=== PATIENT | male | born 1995 | race Caucasian/White ===

== ENCOUNTER 2016-10-11 09:46 | Inpatient (IN) | payer SELFPAY ==
[~2016-10-11] VITALS: Ht 188 cm; Wt 102.4 kg
[2016-10-11 09:51] VITALS: O2SAT 100
[2016-10-11] MEDS ORDERED: LIDOCAINE HCL 1% PF 30 ML VIAL ONE (09:55)
[2016-10-11] MEDS ORDERED: ceFAZolin 2 GM PREMIX 50 ML ONE (09:56)
[2016-10-11] MEDS ORDERED: DIPHTH/TETANUS/ACEL PERTUSSIS (BOOSTER) 0.5 ML VIAL/PFS IM ONE (09:56)
[2016-10-11 10:08] LABS: I-STAT POTASSIUM 4.4 MMOL/L (3.5-4.9); I-STAT SODIUM 140 MMOL/L (138-146)
[2016-10-11 10:12] LABS: AUTOMATED NEUTROPHIL # 49.9 TH/MM3 (1.8-7.7); BASOPHIL # 0.2 TH/MM3 (0-0.2); BASOPHIL % 0.3 % (0.0-2.0); HEMATOCRIT 33.6 % (39.0-51.0); LYMPH % 4.7 % (9.0-44.0); LYMPHOCYTE # 2.7 TH/MM3 (1.0-4.8); MEAN CELL VOLUME 90.8 FL (80.0-100.0); MEAN CORPUSCULAR HEMOGLOBIN 30.5 PG (27.0-34.0); MEAN CORPUSCULAR HGB CONC 33.6 % (32.0-36.0); MONO % 7.3 % (0.0-8.0); NEUT % 87.7 % (16.0-70.0); PLATELET COUNT 327 TH/MM3 (150-450); RED CELL DISTRIBUTION WIDTH 12.8 % (11.6-17.2); WHITE BLOOD COUNT 56.9 TH/MM3 (4.0-11.0)
[2016-10-11 10:14] LABS: HEMO FLAGS AUTO DIFF
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
--- NOTE | 2016-10-11 10:21 | RADRPT ---
EXAM DATE/TIME: 10/11/2016 09:40 [facility] COMPARISON: No previous studies available for comparison. INDICATIONS : Post chest tube placement. MEDICAL HISTORY : Unobtainable. SURGICAL HISTORY : Unobtainable. ENCOUNTER: Subsequent ACUITY: 1 day PAIN SCORE: Non-responsive. LOCATION: Bilateral chest FINDINGS: Chest tube is present on the left with a large left pneumothorax. Right lung is clear. Heart and pu lmonary vascularity are normal. Extensive subcutaneous emphysema is present. CONCLUSION: Large left pneumothorax in spite of chest tube. Félix Gabriel MD FACR on October 11, 2016 at 10:17 Board Certified Radiologist. This report was verified electronically.
[2016-10-11 10:22] LABS: APTT (PATIENT) 24.3 SEC (24.3-30.1); INTERNATIONAL NORMALIZED RATIO 1.4 RATIO; PROTHROMBIN TIME - PATIENT 15.7 SEC (9.8-11.6)
[2016-10-11] MEDS ORDERED: CLINDAMYCIN PHOS 600 MG/4 ML VIAL ONE (10:47)
[2016-10-11 10:48] LABS: BANDS 11 % (0-6); NEUTROPHIL # MANUAL DIFF 50.6 TH/MM3 (1.8-7.7); POLYS (SEG NEUTROPHILS) 78 % (16-70); WBC DIFF SAMPLE 100
[2016-10-11 10:49] LABS: PLATELET ESTIMATE SMEAR NORMAL (NORMAL); PLATELET MORPHOLOGY NORMAL (NORMAL); SCAN/DIFF FINAL DIFF MANUAL
[2016-10-11 10:51] LABS: BLOOD GAS BASE EXCESS -14.7 mmol/L (-2-2); BLOOD GAS CARBOXYHEMOGLOBIN 0.4 % (0-4); BLOOD GAS HCO3 13 mmol/L (22-26); BLOOD GAS METHEMOGLOBIN 1.2 % (0-2); BLOOD GAS O2 HGB SATURATION 98 % (90-100); BLOOD GAS PCO2 46 mmHg (38-42); BLOOD GAS PO2 320 mmHg (61-120); BLOOD GAS TOTAL HGB 11.1 G/DL (12.0-16.0); TEMP CORR TO 98.6
[2016-10-11 10:53] LABS: CRITICAL VALUE YES; OXYGEN DEVICE OR; STAT YES
[2016-10-11] MEDS ORDERED: SODIUM BICARBONATE 8.4% INJ 50 MEQ/50 ML SYR IV ONE (12:00)
[2016-10-11] MEDS ORDERED: LACTATED RINGER'S 1000 ML INJ 4,000 ML IV ONE (12:00)
[2016-10-11] MEDS ORDERED: NORMOSOL R INJ 2,000 ML IV ONE (12:00)
[2016-10-11] MEDS ORDERED: SODIUM CHLOR 0.9% 250 ML INJ 250 ML IV ONE (12:00)
[2016-10-11] MEDS ORDERED: PHENYLEPHRINE HCL 10 MG/ML VIAL IV ONE (12:00)
[2016-10-11] MEDS ORDERED: PROPOFOL 200 MG/20 ML AMP IV ONE (12:00)
[2016-10-11] MEDS ORDERED: CALCIUM CHLORIDE 10% SOLN 1 GRAM/10 ML SYR IV ONE (12:00)
[2016-10-11] MEDS ORDERED: SODIUM CHLORID 0.9% 500 ML INJ 500 ML IV ONE (12:00)
[2016-10-11] MEDS ORDERED: PHENYLEPH/NS 1000 MCG/10 ML SYR IV ONE (12:00)
[2016-10-11] MEDS ORDERED: ONDANSETRON HCL 4 MG/2 ML VIAL IV PUSH ONE (12:00)
[2016-10-11 12:38] LABS: BLOOD GAS CARBOXYHEMOGLOBIN 1.3 % (0-4); BLOOD GAS HCO3 14 mmol/L (22-26); BLOOD GAS METHEMOGLOBIN 1.2 % (0-2); BLOOD GAS O2 HGB SATURATION 97 % (90-100); BLOOD GAS OXYGEN CONTENT 13.4 Vol % (12.0-20.0); BLOOD GAS PCO2 36 mmHg (38-42); BLOOD GAS PO2 269 mmHg (61-120); BLOOD GAS TOTAL HGB 9.4 G/DL (12.0-16.0); TEMP CORR TO 98.6
[2016-10-11 12:39] LABS: CRITICAL VALUE YES; DRAW SITE ART LINE; OXYGEN DEVICE OR; STAT YES
[2016-10-11] MEDS ORDERED: SODIUM CHLOR 0.9% 1000 ML INJ 1,000 ML IV SCH (13:17)
[2016-10-11] MEDS ORDERED: Post-op Orders (for Pharmacy) MISC XX ONE (13:30)
[2016-10-11] MEDS ORDERED: ONDANSETRON HCL 4 MG/2 ML VIAL IV PRN (13:30)
[2016-10-11] MEDS ORDERED: NALOXONE HCL 0.4 MG/ML AMP IV PRN (13:30)
[2016-10-11] MEDS ORDERED: MORPHINE SULFATE 4 MG/ML INJ IV PRN (13:30)
[2016-10-11] MEDS ORDERED: oxyCODONE/ACETAMINOPHEN 5 MG/325 MG TAB PO PRN (13:30)
[2016-10-11] MEDS ORDERED: SODIUM CHLORIDE 0.9% FLUSH 10 ML FLUSH IV FLUSH PRN (13:30)
[2016-10-11 13:33] LABS: HEMATOCRIT 34.8 % (39.0-51.0)
[2016-10-11 13:33] LABS: BLOOD GAS BASE EXCESS -8.2 mmol/L (-2-2); BLOOD GAS CARBOXYHEMOGLOBIN 1.2 % (0-4); BLOOD GAS HCO3 18 mmol/L (22-26); BLOOD GAS METHEMOGLOBIN 1.2 % (0-2); BLOOD GAS O2 HGB SATURATION 97 % (90-100); BLOOD GAS OXYGEN CONTENT 16.5 Vol % (12.0-20.0); BLOOD GAS PCO2 43 mmHg (38-42); BLOOD GAS PO2 255 mmHg (61-120); BLOOD GAS TOTAL HGB 11.7 G/DL (12.0-16.0); TEMP CORR TO 98.6
[2016-10-11 13:34] LABS: REVIEW FLAG FINAL
[2016-10-11 13:34] LABS: CRITICAL VALUE YES
[2016-10-11 13:35] LABS: DRAW SITE ART LINE; OXYGEN DEVICE OR; STAT YES
[2016-10-11 13:47] LABS: BICARBONATE 21.6 MEQ/L (21.0-32.0); POTASSIUM 5.3 MEQ/L (3.5-5.1)
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
[2016-10-11] MEDS ORDERED: fentaNYL CITRATE 250 MCG/5 ML AMP ONE (14:18)
[2016-10-11] MEDS ORDERED: MIDAZOLAM HCL 2 MG/2 ML VIAL ONE (14:18)
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
[2016-10-11 16:43] VITALS: BP 130/67; PULSE 110; RESP 20; TEMP 97.1; O2SAT 99
[2016-10-11] MEDS: PANTOPRAZOLE SOD 40 MG DELAYED RELEASE TAB PO SCH (16:43)
[2016-10-11 18:24] VITALS: O2SAT 99
[2016-10-11] MEDS: LEVOFLOXACIN 750 MG PREMIX INJ 150 ML IV SCH (18:39)
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
[2016-10-11 20:00] VITALS: BP 98/79; PULSE 132; RESP 20; TEMP 100.4; O2SAT 97
[2016-10-11] MEDS: SODIUM CHLORIDE 0.9% FLUSH 10 ML FLUSH IV FLUSH SCH (21:00)
[2016-10-11] MEDS ORDERED: ACETAMINOPHEN 1000 MG/100 ML VIAL IV PRN (21:30)
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
[2016-10-12] VITALS: BP 141/64; PULSE 124; RESP 20; TEMP 100.7; O2SAT 97
[2016-10-12 06:28] LABS: AUTOMATED NEUTROPHIL # 18.1 TH/MM3 (1.8-7.7); BASOPHIL % 0.1 % (0.0-2.0); HEMATOCRIT 32.2 % (39.0-51.0); HEMO FLAGS DIFF FINAL; LYMPH % 8.6 % (9.0-44.0); LYMPHOCYTE # 1.8 TH/MM3 (1.0-4.8); MEAN CELL VOLUME 86.1 FL (80.0-100.0); MEAN CORPUSCULAR HEMOGLOBIN 29.3 PG (27.0-34.0); MEAN CORPUSCULAR HGB CONC 34.1 % (32.0-36.0); MONO % 5.4 % (0.0-8.0); NEUT % 85.9 % (16.0-70.0); PLATELET COUNT 118 TH/MM3 (150-450); RED BLOOD COUNT 3.74 MIL/MM3 (4.50-5.90); RED CELL DISTRIBUTION WIDTH 14.2 % (11.6-17.2); WHITE BLOOD COUNT 21.1 TH/MM3 (4.0-11.0)
[2016-10-12 06:55] LABS: BICARBONATE 25.9 MEQ/L (21.0-32.0); POTASSIUM 3.7 MEQ/L (3.5-5.1)
[2016-10-12 07:45] VITALS: BP 142/72; PULSE 122; RESP 16; TEMP 99.2; O2SAT 96
--- NOTE | 2016-10-12 08:13 | RADRPT ---
EXAM DATE/TIME: 10/12/2016 08:02 [facility] COMPARISON: CHEST SINGLE AP, October 11, 2016, 13:58. INDICATIONS : Follow up trauma. Left chest tube. MEDICAL HISTORY : None. SURGICAL HISTORY : None. ENCOUNTER: Subsequent ACUITY: 2 days PAIN SCORE: 8/10 LOCATION: Bilateral chest FINDINGS: Left chest tube is in good position. Moderate subcutaneous emphysema is present. There is no pneumo thorax. The right lung is clear. Surgical drains are evident in the neck. The heart and pulmonary vascularity are normal. The portion of the bony skeleton visualized is unremarkable. CONCLUSION: Negative for pneumothorax chest tube in good position. Félix Gabriel MD FACR on October 12, 2016 at 8:10 Board Certified Radiologist. This report was verified electronically.
[2016-10-12 08:59] VITALS: O2SAT 98
[2016-10-12] MEDS: SODIUM CHLORIDE 0.9% FLUSH 10 ML FLUSH IV FLUSH SCH ×2 (09:00→20:20)
[2016-10-12 11:15] VITALS: BP 130/75; PULSE 117; RESP 16; TEMP 99.6; O2SAT 97
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
[2016-10-12] MEDS: PANTOPRAZOLE SOD 40 MG DELAYED RELEASE TAB PO SCH (13:06)
[2016-10-12] MEDS ORDERED: DOCU1CAP39 PO (15:10)
[2016-10-12] MEDS ORDERED: MILKSUS PO (15:10)
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
[2016-10-12 15:45] VITALS: BP 148/78; PULSE 110; RESP 16; TEMP 97.8; O2SAT 100
[2016-10-12] MEDS: LEVOFLOXACIN 750 MG PREMIX INJ 150 ML IV SCH (18:00)
[2016-10-12 20:00] VITALS: BP 151/75; PULSE 106; RESP 16; TEMP 100.7; O2SAT 100
[2016-10-12] MEDS: metroNIDAZOLE 500 MG INJ 100 ML IV SCH (20:20)
[2016-10-12] MEDS: DOCUSATE SODIUM 100 MG CAP PO SCH (20:20)
[2016-10-12] MEDS: CEFEPIME INJ 2,000 MG in SODIUM CHLORIDE 0.9% INJ 100 ML IV SCH (20:20)
[2016-10-12] MEDS ORDERED: MAGNESIUM HYDROXIDE SUSP 30 ML CUP PO SCH (21:00)
[2016-10-13] VITALS: BP 137/98; PULSE 104; RESP 26; TEMP 100.2; O2SAT 98
[2016-10-13 02:04] LABS: AMPHETAMINE, URINE NEG (NEG); BARBITURATES, URINE NEG (NEG); COCAINE, URINE NEG (NEG)
[2016-10-13 02:09] LABS: CHLAMYDIA PCR NOT DETECTED (NOT DETECT); NEISSERIA PCR NOT DETECTED (NOT DETECT)
[2016-10-13] MEDS: metroNIDAZOLE 500 MG INJ 100 ML IV SCH (04:12)
[2016-10-13] MEDS: CEFEPIME INJ 2,000 MG in SODIUM CHLORIDE 0.9% INJ 100 ML IV SCH (04:12)
[2016-10-13 05:16] VITALS: BP 145/60; PULSE 108; RESP 20; TEMP 101.7; O2SAT 95
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
--- NOTE | 2016-10-13 06:36 | RADRPT ---
EXAM DATE/TIME: 10/13/2016 05:59 [facility] COMPARISON: CHEST SINGLE AP, October 12, 2016, 8:02. INDICATIONS : Cough, short of breath MEDICAL HISTORY : left chest trauma, left arm injury SURGICAL HISTORY : left upper extremity ENCOUNTER: Subsequent ACUITY: 3 days PAIN SCORE: 9/10 LOCATION: Left chest FINDINGS: A single view of the chest demonstrates the lungs to be symmetrically aerated without evidence of mas s, infiltrate or effusion. The left chest tube has been removed. No pneumothorax. Subcutaneous air re alexandrea on the left. The cardiomediastinal contours are unremarkable. Osseous structures are intact. CONCLUSION: Left chest tube removal without pneumothorax. Francisco Contreras Jr., MD on October 13, 2016 at 6:34 Board Certified Radiologist. This report was verified electronically.
[2016-10-13 06:49] LABS: AUTOMATED NEUTROPHIL # 11.5 TH/MM3 (1.8-7.7); BASOPHIL % 0.2 % (0.0-2.0); EOSINOPHIL % 0.2 % (0.0-4.0); HEMATOCRIT 30.1 % (39.0-51.0); HEMO FLAGS DIFF FINAL; LYMPH % 10.4 % (9.0-44.0); LYMPHOCYTE # 1.5 TH/MM3 (1.0-4.8); MEAN CELL VOLUME 85.3 FL (80.0-100.0); MEAN CORPUSCULAR HEMOGLOBIN 29.7 PG (27.0-34.0); MEAN CORPUSCULAR HGB CONC 34.9 % (32.0-36.0); MONO % 8.6 % (0.0-8.0); NEUT % 80.6 % (16.0-70.0); PLATELET COUNT 126 TH/MM3 (150-450); RED BLOOD COUNT 3.53 MIL/MM3 (4.50-5.90); RED CELL DISTRIBUTION WIDTH 13.8 % (11.6-17.2); WHITE BLOOD COUNT 14.2 TH/MM3 (4.0-11.0)
[2016-10-13 07:13] LABS: ALKALINE PHOSPHATASE 47 U/L (45-117); ALT (GPT) 49 U/L (12-78); ANION GAP 7 MEQ/L (5-15); AST (GOT) 83 U/L (15-37); BICARBONATE 29.1 MEQ/L (21.0-32.0); BLOOD UREA NITROGEN 8 MG/DL (7-18); CHLORIDE 106 MEQ/L (98-107); GLOMERULAR FILTRATION RATE 71 ML/MIN (>89); MAGNESIUM 2.2 MG/DL (1.5-2.5); POTASSIUM 3.5 MEQ/L (3.5-5.1); SODIUM (NA) 142 MEQ/L (136-145); TOTAL BILIRUBIN ADULT 1.4 MG/DL (0.2-1.0)
[2016-10-13 07:37] VITALS: BP 124/72; PULSE 93; RESP 20; TEMP 96.6; O2SAT 97
[2016-10-13] MEDS: DOCUSATE SODIUM 100 MG CAP PO SCH (08:39)
[2016-10-13] MEDS: SODIUM CHLORIDE 0.9% FLUSH 10 ML FLUSH IV FLUSH SCH (08:39)
[2016-10-13] MEDS ORDERED: TYLE325T PO (10:50)
[2016-10-13] MEDS ORDERED: HALOPERIDOL LACTATE 5 MG/ML AMP IM PRN (12:00)
[2016-10-13] MEDS ORDERED: risperiDONE 1 MG TAB PO SCH (12:00)
--- NOTE | 2016-10-13 12:11 | HHI.PYPN ---
Subjective Remarks Patient was seen in the medical floor for psychiatric reevaluation this morning , patient remains in 1:1 observation for safety, she was found in his bed, very superficially cooperative, internally preoccupied, with marked blocking thought. He says that he is here in the hospital because the police in his town have been watching him and monitor his behavior. He says that his town is too small and since he is not working and not doing much with his life, he has been the target of police investigation. He says that "I had a lot subconscious stressed, but now my mood is balance, because I don't feel as if the police is interested in my behavior anymore". Patient states that another reason to be here is that he was posting "dark jokes"in [employer] and his contact became concerned. "I was just using black humor about supermarkets, but they could not understand it". When patient was asked about hearing any voices inside his head, he immediately changes his affect and becomes selectively mute , visibly paranoid and concerned. At several moment of this evaluation patient changed topics, becomes disorganized, but redirectable. He denies suicidal and homicidal ideation. Asked about to elaborate about the reason for self- mutilation he states "they were watching, and they were mad with me", but he refused to comment about who are They. Nurse in charge describes the patient has unpredictable, Oddly related and scary, however, no episodes of aggressive behavior or agitation so far. Review of Systems Constitutional: DENIES: Diaphoretic episodes, Fatigue, Fever, Weight gain, Weight loss, Chills, Dizziness, Change in appetite, Night Sweats Endocrine: DENIES: Heat/cold intolerance, Polydipsia, Polyuria, Polyphagia Eyes: DENIES: Blurred vision, Diplopia, Eye inflammation, Eye pain, Vision loss , Photosensitivity, Double Vision Ears, nose, mouth, throat: DENIES: Tinnitus, Hearing loss, Vertigo, Nasal discharge, Oral lesions, Throat pain, Hoarseness, Ear Pain, Running Nose, Epistaxis, Sinus Pain, Toothache, Odynophagia Respiratory: DENIES: Apneas, Cough, Snoring, Wheezing, Hemoptysis, Sputum production, Shortness of breath Cardiovascular: DENIES: Chest pain, Palpitations, Syncope, Dyspnea on Exertion , PND, Lower Extremity Edema, Orthopnea, Claudication Gastrointestinal: DENIES: Abdominal pain, Black stools, Bloody stools, Constipation, Diarrhea, Nausea, Vomiting, Difficulty Swallowing, Anorexia Musculoskeletal: COMPLAINS OF: Muscle aches, Neck pain Integumentary: DENIES: Abnormal pigmentation, Nail changes, Pruritus, Rash Hematologic/lymphatic: DENIES: Bruising, Lymphadenopathy Immunologic/allergic: DENIES: Eczema, Urticaria Neurologic: DENIES: Abnormal gait, Headache, Localized weakness, Paresthesias, Seizures, Speech Problems, Tremor, Poor Balance Psychiatric: COMPLAINS OF: Hallucinations (internally preoccupied), Delusions ( persecution), DENIES: Anxiety, Confusion, Mood changes, Depression, Agitation, Suicidal Ideation, Homicidal Ideation Objective Alert: Yes [place]: Person, Place, Date Mood: Oppositional, Other (irritable) Affect: Flat, Blunted Memory Intact: Immediate, Recent, Remote Hallucinations: Other (he denies, but visible internally stimulated) Delusions: No (patient has a delusion of being persecuted by police) Delusion Type: Paranoid Suicidal: Ideation (he denies) Homicidal: Ideation (he denies) Insight/Judgement Poor Labs Test 10/12/16 10/13/16 23:40 05:40 Urine Opiates Screen NEG Urine Barbiturates Screen NEG Urine Amphetamines Screen NEG Urine Benzodiazepines Screen NEG Urine Cocaine Screen NEG Urine Cannabinoids Screen NEG Chlamydia trachomatis DNA NOT DETECTED (PCR) Neisseria gonorrhoeae DNA NOT DETECTED (PCR) White Blood Count 14.2 TH/MM3 Red Blood Count 3.53 MIL/MM3 Hemoglobin 10.5 GM/DL Hematocrit 30.1 % Mean Corpuscular Volume 85.3 FL Mean Corpuscular Hemoglobin 29.7 PG Mean Corpuscular Hemoglobin 34.9 % Concent Red Cell Distribution Width 13.8 % Platelet Count 126 TH/MM3 Mean Platelet Volume 9.1 FL Neutrophils (%) (Auto) 80.6 % Lymphocytes (%) (Auto) 10.4 % Monocytes (%) (Auto) 8.6 % Eosinophils (%) (Auto) 0.2 % Basophils (%) (Auto) 0.2 % Neutrophils # (Auto) 11.5 TH/MM3 Lymphocytes # (Auto) 1.5 TH/MM3 Monocytes # (Auto) 1.2 TH/MM3 Eosinophils # (Auto) 0.0 TH/MM3 Basophils # (Auto) 0.0 TH/MM3 CBC Comment DIFF FINAL Differential Comment Sodium Level 142 MEQ/L Potassium Level 3.5 MEQ/L Chloride Level 106 MEQ/L Carbon Dioxide Level 29.1 MEQ/L Anion Gap 7 MEQ/L Blood Urea Nitrogen 8 MG/DL Creatinine 0.92 MG/DL Estimat Glomerular Filtration 71 ML/MIN Rate Random Glucose 118 MG/DL Calcium Level 8.1 MG/DL Magnesium Level 2.2 MG/DL Total Bilirubin 1.4 MG/DL Aspartate Amino Transf 83 U/L (AST/SGOT) Alanine Aminotransferase 49 U/L (ALT/SGPT) Alkaline Phosphatase 47 U/L Total Protein 5.1 GM/DL Albumin 2.5 GM/DL Date/Time Procedure Status Source Growth 10/11/16 18:30 Genital Culture Ordered Genital Penis Pending 10/11/16 12:05 Gram Stain - Final Resulted Wound Wrist 10/11/16 12:05 Wound Culture - Preliminary Resulted Gram Negative Roger 10/11/16 12:05 Fungal Smear - Final Resulted Wound Wrist NO FUNGAL ELEMENTS SEEN. 10/11/16 12:05 Fungal Culture Resulted Wound Wrist Pending 10/11/16 12:05 Acid Fast Stain Received Wound Wrist Pending 10/11/16 12:05 Mycobacterial Culture Received Wound Wrist Pending Vitals/IOs Vital Signs Date Time Temp Pulse Resp B/P Pulse Ox O2 Delivery O2 Flow Rate FiO2 10/13/16 07:37 96.6 93 20 124/72 97 10/12/16 08:59 21 10/11/16 15:30 Room Air 10/11/16 14:30 3 Intake and Output 10/12/16 10/12/16 10/13/16 08:00 16:00 00:00 Intake Total 790 ml 1200 ml Output Total 480 ml 2400 ml Balance 310 ml -1200 ml Assessment & Plan Problem List: (1) Unspecified psychosis Assessment & Plan: On psychiatric reevaluation today patient is visible psychotic, internally stimulated, paranoid, with marked blocking thought, disorganized and tangential speech, significant delusion of being monitored by police and controlled by "They" which we can potentially assume as commanding- type auditory hallucinations. Patient has already self-perpetrated several dangerous lacerations throughout his body under the influence of psychosis, he has been per contact with the reality, with limited ego-boundaries, increased potential of danger to self and others due to the level of psychosis and needs to be hospitalized for psychiatric stabilization and for safety. He can be transferred to the med psych unit. Continue 1:1 for safety. Will start Risperdal 1 mg twice a day for psychosis, with oral Haldol 5 mg every 8 hours when necessary for aggressive behavior and agitation, also Ativan 2 mg every 8 hours when necessary aggressive behavior and ideation. Collateral information is still pending. ICD Code: F29 Assessment & Plan Estimated LOS: days Justification for Cont. Inpt. Patient is floridly psychotic, with a recent highly lethal suicidal attempt under the influence of psychosis, high potential of danger to self and other at this moment. Sridhar Thompson MD Oct 13, 2016 12:11
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
== END 2016-10-13 12:31 | DRG 957 ==
LOC: EDBD → NEPI 09:46 → NEDH 10:19 → N06A 15:59
PROVIDERS: ADMIT Surgery; ATTEND Surgery
PROC: 05QP0ZZ Repair Right External Jugular Vein, Open Approach (ICD-10-PCS; 2016-10-11)
PROC: 03QC0ZZ Repair Left Radial Artery, Open Approach (ICD-10-PCS; 2016-10-11)
PROC: 0LQ60ZZ Repair Left Lower Arm and Wrist Tendon, Open Approach (ICD-10-PCS; 2016-10-11)
PROC: 0W9B30Z Drainage of Left Pleural Cavity with Drainage Device, Percutaneous Approach (ICD-10-PCS; 2016-10-11)
PROC: 0HQ4XZZ Repair Neck Skin, External Approach (ICD-10-PCS; 2016-10-11)
PROC: 0LQ80ZZ Repair Left Hand Tendon, Open Approach (ICD-10-PCS; principal; 2016-10-11 10:17)
PROC: 03Q Upper Arteries, Repair (ICD-10-PCS; 2016-10-11 10:17)
DX: S27.2XXA Traumatic hemopneumothorax, initial encounter (principal); T79.4XXA Traumatic shock, initial encounter; S55.112A Laceration of radial artery at forearm level, left arm, initial encounter; S15.01 Minor laceration of carotid artery; E87.2 Acidosis; S21.112A Laceration without foreign body of left front wall of thorax without penetration into thoracic cavity, initial encounter; S15.211A Minor laceration of right external jugular vein, initial encounter; S66.822A Laceration of other specified muscles, fascia and tendons at wrist and hand level, left hand, initial encounter; F84.5 Asperger's syndrome; F20.0 Paranoid schizophrenia; S66.121A Laceration of flexor muscle, fascia and tendon of left index finger at wrist and hand level, initial encounter; S66.323A Laceration of extensor muscle, fascia and tendon of left middle finger at wrist and hand level, initial encounter; S11.81XA Laceration without foreign body of other specified part of neck, initial encounter; S16.2XXA Laceration of muscle, fascia and tendon at neck level, initial encounter; F94.0 Selective mutism; S61.512A Laceration without foreign body of left wrist, initial encounter; T79.7XXA Traumatic subcutaneous emphysema, initial encounter; X78.1XXA Intentional self-harm by knife, initial encounter
CPT/HCPCS: 32551; 36430; 71010; 73110; 80048; 80053; 80307; 82435; 82565; 82805; 82947; 83735; 84132; 84295; 84520; 85007; 85014; 85018; 85025; 85027; 85610; 85730; 86850; 86900; 86901; 86920; 86927; 87015; 87070; 87077; 87102; 87116; 87153; 87186; 87205; 87206; 87491; 87591; 90471; 90715; 94150; 94667; 96374; 99291; G0390; J0131; J0690; J0692; J1956; J2250; J2370; J2405; J3010; J7030; J7040; J7050; J7120; L0150; P9016; P9017

== ENCOUNTER 2016-10-13 12:45 | Inpatient (IN) | payer SELFPAY ==
[~2016-10-13 12:45] MED LIST: DOCU1CAP39 PO; MILKSUS PO; TYLE325T PO
[2016-10-13 13:27] VITALS: BP 154/82; PULSE 123; RESP 20; TEMP 99.1; O2SAT 99
[2016-10-13] MEDS ORDERED: LORazepam 2 MG/ML VIAL IM PRN ×2 (15:00→20:45)
[2016-10-13] MEDS ORDERED: LORazepam 2 MG/ML VIAL - age > 65 yrs IM PRN (15:00)
[2016-10-13] MEDS ORDERED: LORazepam 0.5 MG TAB age > 65 yrs PO PRN (15:00)
[2016-10-13] MEDS ORDERED: MAGNESIUM HYDROXIDE SUSP 30 ML CUP PO PRN (15:00)
[2016-10-13] MEDS ORDERED: ALUMINUM/MAGNESIUM/SIMETH 30 ML CUP PO PRN (15:00)
[2016-10-13] MEDS: NICOTINE 21 MG/24 HR PATCH T-DERMAL SCH (16:00)
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
[2016-10-13] MEDS ORDERED: LORazepam 1 MG TAB PO PRN (16:15)
[2016-10-13] MEDS ORDERED: FLUMAZENIL 0.5 MG/5 ML VIAL IV PUSH PRN (16:15)
[2016-10-13] MEDS ORDERED: LORazepam 2 MG TAB PO PRN (16:15)
[2016-10-13] MEDS ORDERED: LORazepam 2 MG/ML VIAL IV PUSH PRN ×4 (16:15)
[2016-10-13] MEDS ORDERED: HALOPERIDOL LACTATE 5 MG/ML AMP IM PRN ×2 (16:15→17:00)
[2016-10-13] MEDS: CEFEPIME INJ 2,000 MG in SODIUM CHLORIDE 0.9% INJ 100 ML IV SCH (17:00)
[2016-10-13] MEDS ORDERED: metroNIDAZOLE 500 MG TAB PO SCH (17:00)
[2016-10-13] MEDS: LEVOFLOXACIN 750 MG PREMIX INJ 150 ML IV SCH (18:00)
[2016-10-13] MEDS ORDERED: risperiDONE 1 MG TAB PO ONE (18:00)
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
[2016-10-13 20:44] VITALS: BP 169/78; PULSE 106; RESP 18; TEMP 99.1; O2SAT 95
[2016-10-13] MEDS ORDERED: LORazepam 2 MG/ML VIAL IM ONE (20:45)
[2016-10-13] MEDS ORDERED: diphenhydrAMINE HCL 50 MG/ML VIAL IM ONE (20:45)
[2016-10-13] MEDS ORDERED: ZIPRASIDONE MESYLATE 20 MG VIAL IM ONE (20:45)
[2016-10-13] MEDS: REMOVE OLD NICOTINE PATCH T-DERMAL SCH (21:00)
[2016-10-13] MEDS: risperiDONE 1 MG TAB PO SCH (21:00)
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
[2016-10-13] MEDS: metroNIDAZOLE 500 MG INJ 100 ML IV SCH (22:28)
[2016-10-14 00:32] VITALS: BP 153/85; PULSE 110; RESP 16; TEMP 98.6; O2SAT 99
[2016-10-14] MEDS: CEFEPIME INJ 2,000 MG in SODIUM CHLORIDE 0.9% INJ 100 ML IV SCH ×3 (00:43→17:00)
[2016-10-14 01:56] LABS: ANION GAP 7 MEQ/L (5-15); BICARBONATE 28.3 MEQ/L (21.0-32.0); BLOOD UREA NITROGEN 6 MG/DL (7-18); CHLORIDE 109 MEQ/L (98-107); GLOMERULAR FILTRATION RATE 82 ML/MIN (>89); POTASSIUM 3.8 MEQ/L (3.5-5.1); SODIUM (NA) 144 MEQ/L (136-145); TRANSFERRIN IRON PROFILE 140 MG/DL (200-360)
[2016-10-14 01:59] LABS: FERRITIN 97 NG/ML (26-388); HDL CHOLESTEROL 29.6 MG/DL (40.0-60.0); LDL CHOLESTEROL 21 MG/DL (0-99)
[2016-10-14] MEDS: metroNIDAZOLE 500 MG INJ 100 ML IV SCH ×3 (05:05→21:28)
[2016-10-14 05:31] VITALS: BP 140/73; PULSE 94; RESP 22; TEMP 98.7; O2SAT 96
[2016-10-14] MEDS: MULTIVITAMINS/MINERALS THERAPEUTIC TAB PO SCH (08:54)
[2016-10-14] MEDS: THIAMINE HCL 100 MG TAB PO SCH (08:54)
[2016-10-14] MEDS: risperiDONE 1 MG TAB PO SCH ×2 (08:54→21:00)
[2016-10-14] MEDS: FOLIC ACID 1 MG TAB PO SCH (08:54)
[2016-10-14] MEDS: NICOTINE 21 MG/24 HR PATCH T-DERMAL SCH (08:55)
[2016-10-14] MEDS: FERROUS SULFATE 325 MG (65 MG ELEMENTAL IRON) TAB PO SCH (11:00)
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
[2016-10-14 16:03] LABS: HEMOGLOBIN A1b 0.9 %; HEMOGLOBIN Ao 86.6 %; HEMOGLOBIN F 0.8 %; HEMOGLOBIN LA1C 1.6 %; HEMOGLOBIN P3 3.3 %
--- NOTE | 2016-10-14 16:07 | EKG ---
Date Performed: 10/14/2016 Time Performed: 11:28:57 PTAGE: 89 years EKG: SINUS TACHYCARDIA NONSPECIFIC T-WAVE ABNORMALITY ABNORMAL ECG INTERPRETATION BASED ON A DEF ADRIENNE AGE OF 39 YEARS NO PREVIOUS TRACING DOCTOR: Macey Adams Interpretating Date/Time 10/14/2016 16:06:26
[2016-10-14] MEDS: DOXYCYCLINE INJ 200 MG in SODIUM CHLOR 0.9% 250 ML INJ 250 ML IV SCH (17:00)
[2016-10-14] MEDS: LEVOFLOXACIN 750 MG PREMIX INJ 150 ML IV SCH (18:00)
--- NOTE | 2016-10-14 18:10 | HHI.IDPN ---
Subjective Subjective Remarks seen today together with Dr Agee Pt is afebrile Takes IV abx dw microlab: 2 GNBs, one possibly vibrio - sent to [place] for further ID Antibiotics cefepime levaquine flagyl Past Medical History schitzophrenia Asperger Allergies: Coded Allergies: Sulfa (Verified Allergy, Severe, unknown , 10/13/16) Objective . Vital Signs Date Time Temp Pulse Resp B/P Pulse Ox O2 Delivery O2 Flow Rate FiO2 10/14/16 05:31 98.7 94 22 140/73 96 10/14/16 00:32 98.6 110 16 153/85 99 10/13/16 20:44 99.1 106 18 169/78 95 10/13/16 10/13/16 10/14/16 15:00 23:00 07:00 Intake Total 480 ml Output Total 480 ml Balance 0 ml Intake Oral 480 ml Output Urine Total 480 ml # Voids 3 . Laboratory Tests Test 10/14/16 01:20 Sodium Level 144 MEQ/L Potassium Level 3.8 MEQ/L Chloride Level 109 MEQ/L Carbon Dioxide Level 28.3 MEQ/L Anion Gap 7 MEQ/L Blood Urea Nitrogen 6 MG/DL Creatinine 0.81 MG/DL Estimat Glomerular Filtration 82 ML/MIN Rate Random Glucose 89 MG/DL Hemoglobin A1c 5.2 % Calcium Level 8.0 MG/DL Iron Level 29 MCG/DL Total Iron Binding Capacity 196 MCG/DL Percent Iron Saturation 14.8 % Ferritin 97 NG/ML Triglycerides Level 82 MG/DL Cholesterol Level 67 MG/DL LDL Cholesterol 21 MG/DL HDL Cholesterol 29.6 MG/DL Cholesterol/HDL Ratio 2.26 RATIO Microbiology Date/Time Procedure Status Source Growth 10/14/16 01:20 Aerobic Blood Culture Received Blood Peripheral Pending 10/14/16 01:20 Anaerobic Blood Culture Received Blood Peripheral Pending 10/14/16 01:25 Aerobic Blood Culture Received Blood Peripheral Pending 10/14/16 01:25 Anaerobic Blood Culture Received Blood Peripheral Pending Physical Exam GENERAL: This is a well-nourished, well-developed patient, in no apparent distress. PSYCHIATRIC: delusional; no insight into his medidcal sitution; tangential more cooperative today MUSCULOSKELETAL: Extremities without clubbing, cyanosis, or edema. LUE with clean, dry well approximated incision with min serous d/c some eythema and soft edema proximally to incision next to his L UE PIV - not crossing the yday mars moves finger TUBES/LINES/DRAINS: PIV LUE SKIN: No jaundice, rashes, or lesions. Skin temperature appropriate. Not diaphoretic. HEAD: Atraumatic. Normocephalic. EYES: Pupils equal and round and reactive. Extraocular motions intact. No scleral icterus. No injection or drainage. Fundi not examined. ENT: Hearing grossly normal. Nose without bleeding or purulent drainage. NECK: Trachea midline. B/l incisions are dry and clean with stapnles in CARDIOVASCULAR: no murmurs; regular RESPIRATORY/CHEST: Symmetric, unlabored respirations. Clear to auscultation + some mild crepitus to palpation of L chest Incision is dry, clean, no drainage or erythema/edema GASTROINTESTINAL: soft benign, No hepatosplenomegaly NEUROLOGICAL: Awake and alert. Motor and sensory grossly within normal limits. Speech normal mostly incoherent. Moves all extremities. Assessment & Plan Remarks Contaminated wound of LUE with water exposure, infected with GNR x 2, one possibly vibrio Fever - likely 2/2 LUE infx, however other sources can not be exclusded untill physical exam is performed, that was refused by the pt Pt phycosis is much better controlled and he is cooperatiing with IV abx sp dT booster in ER Penile drainage, clx P Improved renal fnx cont levaqin, cefepime, flagyl add doxycycline fu blood clx fu genital cx dw RN dw Giovanna Doshi MD Oct 14, 2016 18:10
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
[2016-10-14 18:32] VITALS: BP 127/65; PULSE 106; RESP 18; TEMP 98.5; O2SAT 97
[2016-10-14] MEDS: REMOVE OLD NICOTINE PATCH T-DERMAL SCH (21:00)
[2016-10-15] MEDS: CEFEPIME INJ 2,000 MG in SODIUM CHLORIDE 0.9% INJ 100 ML IV SCH ×3 (00:54→16:34)
[2016-10-15] MEDS: DOXYCYCLINE INJ 200 MG in SODIUM CHLOR 0.9% 250 ML INJ 250 ML IV SCH ×2 (04:15→17:00)
[2016-10-15] MEDS: metroNIDAZOLE 500 MG INJ 100 ML IV SCH ×3 (06:19→22:50)
[2016-10-15 06:34] VITALS: BP 147/84; PULSE 102; RESP 24; TEMP 100.3; O2SAT 96
[2016-10-15] MEDS: FOLIC ACID 1 MG TAB PO SCH (09:00)
[2016-10-15] MEDS: risperiDONE 1 MG TAB PO SCH (09:00)
[2016-10-15] MEDS: THIAMINE HCL 100 MG TAB PO SCH (09:00)
[2016-10-15] MEDS: NICOTINE 21 MG/24 HR PATCH T-DERMAL SCH (09:00)
[2016-10-15] MEDS: FERROUS SULFATE 325 MG (65 MG ELEMENTAL IRON) TAB PO SCH (09:00)
[2016-10-15] MEDS: MULTIVITAMINS/MINERALS THERAPEUTIC TAB PO SCH (09:00)
[2016-10-15] MEDS ORDERED: LORazepam 2 MG/ML VIAL IV PUSH ONE (09:30)
[2016-10-15] MEDS ORDERED: ACETAMINOPHEN 1000 MG/100 ML VIAL IV PRN (09:45)
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
[2016-10-15 11:07] LABS: AUTOMATED NEUTROPHIL # 8.5 TH/MM3 (1.8-7.7); BASOPHIL % 0.3 % (0.0-2.0); EOSINOPHIL # 0.2 TH/MM3 (0-0.4); EOSINOPHIL % 1.8 % (0.0-4.0); HEMATOCRIT 35.7 % (39.0-51.0); LYMPH % 11.8 % (9.0-44.0); LYMPHOCYTE # 1.3 TH/MM3 (1.0-4.8); MEAN CELL VOLUME 86.5 FL (80.0-100.0); MEAN CORPUSCULAR HEMOGLOBIN 29.2 PG (27.0-34.0); MEAN CORPUSCULAR HGB CONC 33.8 % (32.0-36.0); MONO % 10.7 % (0.0-8.0); NEUT % 75.4 % (16.0-70.0); PLATELET COUNT 188 TH/MM3 (150-450); RED BLOOD COUNT 4.12 MIL/MM3 (4.50-5.90); RED CELL DISTRIBUTION WIDTH 13.3 % (11.6-17.2); WHITE BLOOD COUNT 11.3 TH/MM3 (4.0-11.0)
[2016-10-15 11:10] LABS: HEMO FLAGS AUTO DIFF
[2016-10-15 11:59] LABS: BICARBONATE 24.8 MEQ/L (21.0-32.0); POTASSIUM 3.8 MEQ/L (3.5-5.1)
[2016-10-15 12:10] LABS: SCAN/DIFF AUTO DIFF CONFIRMED
[2016-10-15] MEDS ORDERED: ZIPRASIDONE MESYLATE 20 MG VIAL IM PRN (13:15)
--- NOTE | 2016-10-15 13:27 | HHI.PYPN ---
Subjective Remarks Patient was seen today for psychiatric reevaluation, he was seen along with nurse in charge Uday Killian and ADRIEL Lynch, patient was found standing in his room, moveless, very rigid, in the same position for several minutes, not responding to verbal commands, mute and marked negativism. After giving him 2 mg of Ativan IV stat he showed an almost immediate positive response. Patient continues to be very paranoid, refusing to eat, refusing the medications stating that is poisoned. He is also disorganized, tangential, no making sense , at times agitated in the unit, but not aggressive so far. Patient denies suicidal or homicidal ideation, he denies visual and auditory hallucinations, however he has been seeing internally stimulated and talking to himself often in the unit. Review of Systems Other No somatic complaints Objective Alert: Yes Lamar: Person Mood: Oppositional Affect: Flat, Blunted Memory Intact: Comment (no formally assessed) Hallucinations: Other (not formally assessed) Delusions: Yes (paranoid) Delusion Type: Paranoid Suicidal: Ideation (he denies) Homicidal: Ideation (he denies) Insight/Judgement Poor Labs Test 10/15/16 10:22 White Blood Count 11.3 TH/MM3 Red Blood Count 4.12 MIL/MM3 Hemoglobin 12.0 GM/DL Hematocrit 35.7 % Mean Corpuscular Volume 86.5 FL Mean Corpuscular Hemoglobin 29.2 PG Mean Corpuscular Hemoglobin 33.8 % Concent Red Cell Distribution Width 13.3 % Platelet Count 188 TH/MM3 Mean Platelet Volume 8.6 FL Neutrophils (%) (Auto) 75.4 % Lymphocytes (%) (Auto) 11.8 % Monocytes (%) (Auto) 10.7 % Eosinophils (%) (Auto) 1.8 % Basophils (%) (Auto) 0.3 % Neutrophils # (Auto) 8.5 TH/MM3 Lymphocytes # (Auto) 1.3 TH/MM3 Monocytes # (Auto) 1.2 TH/MM3 Eosinophils # (Auto) 0.2 TH/MM3 Basophils # (Auto) 0.0 TH/MM3 CBC Comment AUTO DIFF Differential Comment AUTO DIFF CONFIRMED Sodium Level 140 MEQ/L Potassium Level 3.8 MEQ/L Chloride Level 107 MEQ/L Carbon Dioxide Level 24.8 MEQ/L Anion Gap 8 MEQ/L Blood Urea Nitrogen 10 MG/DL Creatinine 0.91 MG/DL Estimat Glomerular Filtration 105 ML/MIN Rate Random Glucose 101 MG/DL Calcium Level 8.9 MG/DL Magnesium Level 2.0 MG/DL Date/Time Procedure Status Source Growth 10/14/16 01:25 Aerobic Blood Culture - Preliminary Resulted Blood Peripheral NO GROWTH IN 1 DAY 10/14/16 01:25 Anaerobic Blood Culture - Preliminary Resulted Blood Peripheral NO GROWTH IN 1 DAY Vitals/IOs Vital Signs Date Time Temp Pulse Resp B/P Pulse Ox O2 Delivery O2 Flow Rate FiO2 10/15/16 06:34 100.3 102 24 147/84 96 Intake and Output 10/14/16 10/14/16 10/15/16 08:00 16:00 00:00 Intake Total 480 ml 360 ml 3800 ml Output Total 480 ml Balance 0 ml 360 ml 3800 ml Assessment & Plan Problem List: (1) Unspecified psychosis Assessment & Plan: Patient today was found in a catatonic state. He was medicated with Ativan 2 mg IV stat. Patient is still psychotic, disorganized, delusional, very paranoid in the unit, no taking medications stating that is poisoned. Will discontinue Risperdal 1 mg twice a day and add Geodon 10 mg IM every 12 hours for psychosis. Patient will remain in one-to-one observation for safety. ICD Code: F29 (2) Catatonia Assessment & Plan: Significant evaluation today patient presented mute, in a rigid standing position, verbally moving, not following commands, with marked negativism. He was medicated with Ativan 2 mg IV stat and almost immediately he showed improvement. ICD Code: F06.1 Assessment & Plan Estimated LOS: days Justification for Cont. Inpt. Patient is acutely psychotic, today was even catatonic, he will continue psychiatric hospitalization for stabilization. Sridhar Thompson MD Oct 15, 2016 13:27
[2016-10-15] MEDS: ZIPRASIDONE MESYLATE 20 MG VIAL IM SCH (15:44)
[2016-10-15] MEDS: LEVOFLOXACIN 750 MG PREMIX INJ 150 ML IV SCH (18:00)
[2016-10-15 19:14] VITALS: BP 146/78; PULSE 97; RESP 20; TEMP 98.1; O2SAT 97
[2016-10-15] MEDS: REMOVE OLD NICOTINE PATCH T-DERMAL SCH (21:00)
[2016-10-16] MEDS: CEFEPIME INJ 2,000 MG in SODIUM CHLORIDE 0.9% INJ 100 ML IV SCH ×2 (01:38→09:46)
[2016-10-16] MEDS: ZIPRASIDONE MESYLATE 20 MG VIAL IM SCH ×2 (04:30→15:36)
[2016-10-16] MEDS: DOXYCYCLINE INJ 200 MG in SODIUM CHLOR 0.9% 250 ML INJ 250 ML IV SCH ×2 (05:23→16:40)
[2016-10-16 05:48] VITALS: BP 128/82; PULSE 97; RESP 18; TEMP 99; O2SAT 98
[2016-10-16 06:47] LABS: AUTOMATED NEUTROPHIL # 7.2 TH/MM3 (1.8-7.7); BASOPHIL % 0.4 % (0.0-2.0); EOSINOPHIL # 0.4 TH/MM3 (0-0.4); EOSINOPHIL % 3.5 % (0.0-4.0); HEMATOCRIT 33.7 % (39.0-51.0); LYMPH % 15.4 % (9.0-44.0); LYMPHOCYTE # 1.6 TH/MM3 (1.0-4.8); MEAN CELL VOLUME 85.8 FL (80.0-100.0); MEAN CORPUSCULAR HEMOGLOBIN 29.9 PG (27.0-34.0); MEAN CORPUSCULAR HGB CONC 34.8 % (32.0-36.0); MONO % 10.6 % (0.0-8.0); NEUT % 70.1 % (16.0-70.0); PLATELET COUNT 217 TH/MM3 (150-450); RED BLOOD COUNT 3.92 MIL/MM3 (4.50-5.90); RED CELL DISTRIBUTION WIDTH 13.6 % (11.6-17.2); WHITE BLOOD COUNT 10.3 TH/MM3 (4.0-11.0)
[2016-10-16 06:53] LABS: ALKALINE PHOSPHATASE 49 U/L (45-117); ALT (GPT) 46 U/L (12-78); ANION GAP 10 MEQ/L (5-15); AST (GOT) 22 U/L (15-37); BICARBONATE 23.4 MEQ/L (21.0-32.0); BLOOD UREA NITROGEN 11 MG/DL (7-18); CHLORIDE 106 MEQ/L (98-107); CREATINE KINASE 205 U/L (39-308); GLOMERULAR FILTRATION RATE 112 ML/MIN (>89); MAGNESIUM 2.1 MG/DL (1.5-2.5); POTASSIUM 3.8 MEQ/L (3.5-5.1); SODIUM (NA) 139 MEQ/L (136-145); TOTAL BILIRUBIN ADULT 0.8 MG/DL (0.2-1.0)
[2016-10-16 06:55] LABS: HEMO FLAGS AUTO DIFF
[2016-10-16] MEDS: metroNIDAZOLE 500 MG INJ 100 ML IV SCH (07:03)
[2016-10-16] MEDS: MULTIVITAMINS/MINERALS THERAPEUTIC TAB PO SCH (07:46)
[2016-10-16] MEDS: THIAMINE HCL 100 MG TAB PO SCH (07:46)
[2016-10-16] MEDS: FOLIC ACID 1 MG TAB PO SCH (07:46)
[2016-10-16] MEDS: NICOTINE 21 MG/24 HR PATCH T-DERMAL SCH (07:47)
[2016-10-16] MEDS: FERROUS SULFATE 325 MG (65 MG ELEMENTAL IRON) TAB PO SCH (07:47)
[2016-10-16 08:38] LABS: BANDS 11 % (0-6); EOSINOPHILS 3 % (0-4); MYELOCYTES 3 % (0-0); POLYS (SEG NEUTROPHILS) 64 % (16-70); WBC DIFF SAMPLE 100
[2016-10-16 08:39] LABS: PLATELET ESTIMATE SMEAR NORMAL (NORMAL); PLATELET MORPHOLOGY NORMAL (NORMAL)
[2016-10-16 08:40] LABS: SCAN/DIFF FINAL DIFF MANUAL
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
[2016-10-16] MEDS: LACTOBACILLUS ACIDOPHILUS TAB PO SCH (12:53)
--- NOTE | 2016-10-16 13:31 | EKG ---
Date Performed: 10/15/2016 Time Performed: 13:30:43 PTAGE: 20 years EKG: SINUS TACHYCARDIA ABNORMAL RHYTHM ECG PREVIOUS TRACING : 10/14/2016 11.28 Compared to prior tracing no significant change DOCTOR: Noel Mondragon Interpretating Date/Time 10/16/2016 13:29:16
--- NOTE | 2016-10-16 15:13 | RADRPT ---
EXAM DATE/TIME: 10/16/2016 12:48 [facility] COMPARISON: No previous studies available for comparison. INDICATIONS : Altered mental status, psychosis. RADIATION DOSE: 56.35 CTDIvol (mGy) MEDICAL HISTORY : Autism. SURGICAL HISTORY : None. ENCOUNTER: Initial ACUITY: 4 - 6 days PAIN SCALE: 0/10 LOCATION: cranial TECHNIQUE: Multiple contiguous axial images were obtained of the head. Using automated exposure control and adj ustment of the mA and/or kV according to patient size, radiation dose was kept as low as reasonably a chievable to obtain optimal diagnostic quality images. FINDINGS: CEREBRUM: The ventricles are normal for age. No evidence of midline shift, mass lesion, hemorrhage or acute in farction. No extra-axial fluid collections are seen. POSTERIOR FOSSA: The cerebellum and brainstem are intact. The 4th ventricle is midline. The cerebellopontine angle i s unremarkable. EXTRACRANIAL: The visualized portion of the orbits is intact. SKULL: The calvaria is intact. No evidence of skull fracture. Skin amos present no posterolateral neck. CONCLUSION: Negative noncontrast CT brain. Francisco Langston MD on October 16, 2016 at 15:10 Board Certified Radiologist. This report was verified electronically.
--- NOTE | 2016-10-16 15:41 | HHI.PYPN ---
Subjective Remarks Patient was seen for psychiatric reevaluation today, patient is found in his bed , thoughtful, internally preoccupied, he says that he feels better, he says that he doesn't know if he should speak with me because he doesn't trust people here, patient says that the reason he is here is because he wanted to kill himself "and now everyone is mad with me". He continues to be disorganized, with pronounced respiratory speech and blocking thought. He has been getting his IM Geodon 10 mg twice a day without major resistance, no agitation or aggressive behavior reported, but he has been poorly cooperative, internally preoccupied, disorganized, talking to self. Review of Systems Other No somatic complaints Objective Alert: Yes [place]: Person Mood: Oppositional Affect: Flat, Blunted Memory Intact: Comment (no formally assessed) Hallucinations: Other (not formally assessed) Delusions: Yes (paranoid) Delusion Type: Paranoid Suicidal: Ideation (he denies) Homicidal: Ideation (he denies) Insight/Judgment Poor Labs Test 10/16/16 05:48 White Blood Count 10.3 TH/MM3 Red Blood Count 3.92 MIL/MM3 Hemoglobin 11.7 GM/DL Hematocrit 33.7 % Mean Corpuscular Volume 85.8 FL Mean Corpuscular Hemoglobin 29.9 PG Mean Corpuscular Hemoglobin 34.8 % Concent Red Cell Distribution Width 13.6 % Platelet Count 217 TH/MM3 Mean Platelet Volume 9.0 FL Neutrophils (%) (Auto) 70.1 % Lymphocytes (%) (Auto) 15.4 % Monocytes (%) (Auto) 10.6 % Eosinophils (%) (Auto) 3.5 % Basophils (%) (Auto) 0.4 % Neutrophils # (Auto) 7.2 TH/MM3 Lymphocytes # (Auto) 1.6 TH/MM3 Monocytes # (Auto) 1.1 TH/MM3 Eosinophils # (Auto) 0.4 TH/MM3 Basophils # (Auto) 0.0 TH/MM3 CBC Comment AUTO DIFF Differential Total Cells 100 Counted Neutrophils % (Manual) 64 % Band Neutrophils % 11 % Lymphocytes % 11 % Monocytes % 8 % Eosinophils % 3 % Neutrophils # (Manual) 8.0 TH/MM3 Myelocytes 3 % Differential Comment FINAL DIFF MANUAL Platelet Estimate NORMAL Platelet Morphology Comment NORMAL Sodium Level 139 MEQ/L Potassium Level 3.8 MEQ/L Chloride Level 106 MEQ/L Carbon Dioxide Level 23.4 MEQ/L Anion Gap 10 MEQ/L Blood Urea Nitrogen 11 MG/DL Creatinine 0.86 MG/DL Estimat Glomerular Filtration 112 ML/MIN Rate Random Glucose 97 MG/DL Calcium Level 8.6 MG/DL Magnesium Level 2.1 MG/DL Total Bilirubin 0.8 MG/DL Aspartate Amino Transf 22 U/L (AST/SGOT) Alanine Aminotransferase 46 U/L (ALT/SGPT) Alkaline Phosphatase 49 U/L Total Creatine Kinase 205 U/L Total Protein 6.3 GM/DL Albumin 3.1 GM/DL Date/Time Procedure Status Source Growth 10/14/16 01:25 Aerobic Blood Culture - Preliminary Resulted Blood Peripheral NO GROWTH IN 2 DAYS 10/14/16 01:25 Anaerobic Blood Culture - Preliminary Resulted Blood Peripheral NO GROWTH IN 2 DAYS Vitals/IOs Vital Signs Date Time Temp Pulse Resp B/P Pulse Ox O2 Delivery O2 Flow Rate FiO2 10/16/16 05:48 99.0 97 18 128/82 98 Intake and Output 10/15/16 10/15/16 10/16/16 08:00 16:00 00:00 Intake Total 0 ml 240 ml 240 ml Balance 0 ml 240 ml 240 ml Assessment & Plan Problem List: (1) Unspecified psychosis Assessment & Plan: We'll continue Geodon 10 mg IM twice a day for psychosis, most probably will increase tomorrow. Continue close monitoring of behavior and mood. ICD Code: F29 (2) Catatonia ICD Code: F06.1 Assessment & Plan Estimated LOS: days Justification for Cont. Inpt. Patient continues to be acutely psychotic, internally preoccupied, very paranoid and he needs to continue his psychiatric hospitalization for stabilization Sridhar Thompson MD Oct 16, 2016 15:41
[2016-10-16 18:00] VITALS: BP 116/72; PULSE 97; RESP 18; TEMP 99.5; O2SAT 97
[2016-10-16] MEDS: LEVOFLOXACIN 750 MG PREMIX INJ 150 ML IV SCH (18:00)
[2016-10-16] MEDS: REMOVE OLD NICOTINE PATCH T-DERMAL SCH (21:00)
[2016-10-17] MEDS: ZIPRASIDONE MESYLATE 20 MG VIAL IM SCH ×3 (03:45→23:15)
[2016-10-17] MEDS: DOXYCYCLINE INJ 200 MG in SODIUM CHLOR 0.9% 250 ML INJ 250 ML IV SCH ×2 (03:47→16:11)
[2016-10-17] MEDS: ACETAMINOPHEN 325 MG TAB PO PRN (04:07)
[2016-10-17] MEDS: NICOTINE 21 MG/24 HR PATCH T-DERMAL SCH (09:00)
[2016-10-17] MEDS: FOLIC ACID 1 MG TAB PO SCH (09:50)
[2016-10-17] MEDS: FERROUS SULFATE 325 MG (65 MG ELEMENTAL IRON) TAB PO SCH (09:50)
[2016-10-17] MEDS: LACTOBACILLUS ACIDOPHILUS TAB PO SCH ×3 (09:51→17:34)
[2016-10-17] MEDS: THIAMINE HCL 100 MG TAB PO SCH (09:51)
[2016-10-17] MEDS: MULTIVITAMINS/MINERALS THERAPEUTIC TAB PO SCH (09:51)
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
--- NOTE | 2016-10-17 13:59 | HHI.PYPN ---
Subjective Remarks Patient was seen for psychiatric reevaluation today, patient continues to be quite disorganized, tangential and oddly related, but more talkative and able to answer questions. He says that he is here because he deserved to be here "because I haven't been a good friend in a good son". Patient says that he feels guilty that he had to drop school because "I am a stupid". In other hand , in the later moment patient says that he can read my mind "because I have a mathematical mind, and I am smarter than you". During the evaluation patient has several moments of thought fragmentation and thought blocking. He seems to be internally preoccupied, and at times can become irritable and visibly paranoid. In the unit he has not been agitated or aggressive, but sometimes displays bizarre behavior and movements. Review of Systems Other No somatic complaints Objective Alert: Yes [place]: Person Mood: Oppositional Affect: Flat, Blunted Memory Intact: Comment (no formally assessed) Hallucinations: Other (not formally assessed) Delusions: Yes (paranoid) Delusion Type: Paranoid Suicidal: Ideation (he denies) Homicidal: Ideation (he denies) Insight/Judgment Poor Labs Date/Time Procedure Status Source Growth 10/14/16 01:25 Aerobic Blood Culture - Preliminary Resulted Blood Peripheral NO GROWTH IN 3 DAYS 10/14/16 01:25 Anaerobic Blood Culture - Preliminary Resulted Blood Peripheral NO GROWTH IN 3 DAYS Vitals/IOs Vital Signs Date Time Temp Pulse Resp B/P Pulse Ox O2 Delivery O2 Flow Rate FiO2 10/16/16 18:00 99.5 97 18 116/72 97 Intake and Output 10/16/16 10/16/16 10/17/16 08:00 16:00 00:00 Intake Total 2500 ml 480 ml 680 ml Balance 2500 ml 480 ml 680 ml Assessment & Plan Problem List: (1) Unspecified psychosis Assessment & Plan: Patient continues to be psychotic, will increase Geodon to 10 mg IM the morning and 15 mg IM at bedtime. Patient needs to remain in one-to -one observation due to unpredictable behavior and for safety. ICD Code: F29 (2) Catatonia ICD Code: F06.1 Assessment & Plan Estimated LOS: days Justification for Cont. Inpt. Patient is acutely psychotic and is to continue psychiatric hospitalization for stabilization Sridhar Thompson MD Oct 17, 2016 13:59
[2016-10-17 18:00] VITALS: BP 130/67; PULSE 93; RESP 20; TEMP 98.4; O2SAT 97
[2016-10-17] MEDS: LEVOFLOXACIN 750 MG PREMIX INJ 150 ML IV SCH (18:01)
--- NOTE | 2016-10-17 18:52 | HHI.IDPN ---
Subjective Subjective Remarks seen today together with Dr Agee Pt is afebrile Takes IV abx much calmer today He co mild discomfort in L forearm BC remain negative dw microlab: 2 GNBs, one possibly vibrio - sent to [place] for further ID, still P Antibiotics cefepime levaquine flagyl Past Medical History schitzophrenia Asperger Allergies: Coded Allergies: Sulfa (Verified Allergy, Severe, unknown , 10/13/16) Objective . 10/16/16 10/16/16 10/17/16 15:00 23:00 07:00 Intake Total 480 ml 680 ml Balance 480 ml 680 ml Intake Oral 480 ml 480 ml IV Total 200 ml # Voids 3 2 # Bowel Movements 0 . Laboratory Tests Test 10/16/16 05:48 White Blood Count 10.3 TH/MM3 Red Blood Count 3.92 MIL/MM3 Hemoglobin 11.7 GM/DL Hematocrit 33.7 % Mean Corpuscular Volume 85.8 FL Mean Corpuscular Hemoglobin 29.9 PG Mean Corpuscular Hemoglobin 34.8 % Concent Red Cell Distribution Width 13.6 % Platelet Count 217 TH/MM3 Mean Platelet Volume 9.0 FL Neutrophils (%) (Auto) 70.1 % Lymphocytes (%) (Auto) 15.4 % Monocytes (%) (Auto) 10.6 % Eosinophils (%) (Auto) 3.5 % Basophils (%) (Auto) 0.4 % Neutrophils # (Auto) 7.2 TH/MM3 Lymphocytes # (Auto) 1.6 TH/MM3 Monocytes # (Auto) 1.1 TH/MM3 Eosinophils # (Auto) 0.4 TH/MM3 Basophils # (Auto) 0.0 TH/MM3 CBC Comment AUTO DIFF Differential Total Cells 100 Counted Neutrophils % (Manual) 64 % Band Neutrophils % 11 % Lymphocytes % 11 % Monocytes % 8 % Eosinophils % 3 % Neutrophils # (Manual) 8.0 TH/MM3 Myelocytes 3 % Differential Comment FINAL DIFF MANUAL Platelet Estimate NORMAL Platelet Morphology Comment NORMAL Laboratory Tests Test 10/16/16 05:48 Sodium Level 139 MEQ/L Potassium Level 3.8 MEQ/L Chloride Level 106 MEQ/L Carbon Dioxide Level 23.4 MEQ/L Anion Gap 10 MEQ/L Blood Urea Nitrogen 11 MG/DL Creatinine 0.86 MG/DL Estimat Glomerular Filtration 112 ML/MIN Rate Random Glucose 97 MG/DL Calcium Level 8.6 MG/DL Magnesium Level 2.1 MG/DL Total Bilirubin 0.8 MG/DL Aspartate Amino Transf 22 U/L (AST/SGOT) Alanine Aminotransferase 46 U/L (ALT/SGPT) Alkaline Phosphatase 49 U/L Total Creatine Kinase 205 U/L Total Protein 6.3 GM/DL Albumin 3.1 GM/DL Physical Exam GENERAL: This is a well-nourished, well-developed patient, in no apparent distress. PSYCHIATRIC: still tangential but is quit calm and more cooperative today MUSCULOSKELETAL: Extremities without clubbing, cyanosis, or edema. LUE with intact dressing resolved eythema and edema proximally to incision next to his L UE PIV - but a palpable cord present TUBES/LINES/DRAINS: PIV LUE : R UE - no e/o infx SKIN: No jaundice, rashes, or lesions. Skin temperature appropriate. Not diaphoretic. HEAD: Atraumatic. Normocephalic. EYES: Pupils equal and round and reactive. Extraocular motions intact. No scleral icterus. No injection or drainage. Fundi not examined. NECK: Trachea midline. R side incision are dry and clean with stapnles in, healing nicely RESPIRATORY/CHEST: unlabored respirations. NEUROLOGICAL: Awake and alert. Motor and sensory grossly within normal limits. Speech normal coherent but tangential. Moves all extremities. Assessment & Plan Remarks Contaminated wound of LUE with water exposure, infected with GNR x 2, one possibly vibrio Fever - likely 2/2 LUE infx, however other sources can not be exclusded untill physical exam is performed, that was refused by the pt Pt phycosis is much better controlled and he is cooperatiing with IV abx sp dT booster in ER Penile drainage, clx cancelled (not received) Improved renal fnx ARF - resolved Bandemia - new cont levaqin and doxycycline x 14 days total fu L forearm clx untill final dc cefepime, flagyl fu blood clx get 1st void urine for GC/chlam intead of penile dc clx monitor WBC dw Giovanna Cheung MD Oct 17, 2016 18:52
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
[2016-10-17] MEDS: REMOVE OLD NICOTINE PATCH T-DERMAL SCH (21:00)
[2016-10-17] MEDS: LORazepam 1 MG TAB PO PRN (21:13)
[2016-10-18] MEDS: LORazepam 1 MG TAB PO PRN (00:45)
[2016-10-18] MEDS: DOXYCYCLINE INJ 200 MG in SODIUM CHLOR 0.9% 250 ML INJ 250 ML IV SCH ×2 (05:00→16:34)
[2016-10-18 06:23] VITALS: BP 129/67; PULSE 80; RESP 15; TEMP 98.5; O2SAT 97
[2016-10-18] MEDS: ZIPRASIDONE MESYLATE 20 MG VIAL IM SCH ×3 (09:00→21:00)
[2016-10-18] MEDS: NICOTINE 21 MG/24 HR PATCH T-DERMAL SCH (09:00)
[2016-10-18] MEDS: THIAMINE HCL 100 MG TAB PO SCH (09:26)
[2016-10-18] MEDS: FERROUS SULFATE 325 MG (65 MG ELEMENTAL IRON) TAB PO SCH (09:26)
[2016-10-18] MEDS: FOLIC ACID 1 MG TAB PO SCH (09:26)
[2016-10-18] MEDS: LACTOBACILLUS ACIDOPHILUS TAB PO SCH ×3 (09:26→18:00)
[2016-10-18] MEDS: MULTIVITAMINS/MINERALS THERAPEUTIC TAB PO SCH (09:26)
[2016-10-18 11:44] LABS: CHLAMYDIA PCR NOT DETECTED (NOT DETECT); NEISSERIA PCR NOT DETECTED (NOT DETECT)
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
--- NOTE | 2016-10-18 14:30 | HHI.PYPN ---
Subjective Remarks Patient seen in his room with sitter, chart review, patient sitting in bed reading book. Patient appears quite guarded paranoid with a suspicious glancing at me. His responses are delayed slow and tangential. Though he is compliant with his medications Review of Systems Except as stated in HPI: all other systems reviewed are Neg Objective Alert: Yes [place]: Person Mood: Oppositional Affect: Flat, Blunted Memory Intact: Comment (no formally assessed) Hallucinations: Other (not formally assessed) Delusions: Yes (paranoid) Delusion Type: Paranoid Suicidal: Ideation (he denies) Homicidal: Ideation (he denies) Insight/Judgment Very poor Labs Test 10/18/16 06:00 Chlamydia trachomatis DNA NOT DETECTED (PCR) Neisseria gonorrhoeae DNA NOT DETECTED (PCR) Date/Time Procedure Status Source Growth 10/14/16 01:25 Aerobic Blood Culture - Preliminary Resulted Blood Peripheral NO GROWTH IN 4 DAYS 10/14/16 01:25 Anaerobic Blood Culture - Preliminary Resulted Blood Peripheral NO GROWTH IN 4 DAYS Vitals/IOs Vital Signs Date Time Temp Pulse Resp B/P Pulse Ox O2 Delivery O2 Flow Rate FiO2 10/18/16 06:23 98.5 80 15 129/67 97 Intake and Output 10/17/16 10/17/16 10/18/16 08:00 16:00 00:00 Intake Total 120 ml 360 ml Balance 120 ml 360 ml Assessment & Plan Problem List: (1) Unspecified psychosis ICD Code: F29 (2) Catatonia ICD Code: F06.1 Assessment & Plan Estimated LOS: days patient continue psychotic with marked psycho motor delay. Compliant medications Justification for Cont. Inpt. At this time patient will decompensate placed in a lower level of care Discharge Planning To be determined Jey Ochoa MD Oct 18, 2016 14:30
[2016-10-18 19:00] VITALS: BP 124/70; PULSE 96; RESP 16; TEMP 98.4; O2SAT 97
[2016-10-18] MEDS: LEVOFLOXACIN 750 MG PREMIX INJ 150 ML IV SCH (19:13)
[2016-10-18] MEDS: REMOVE OLD NICOTINE PATCH T-DERMAL SCH (21:00)
[2016-10-19] MEDS: DOXYCYCLINE INJ 200 MG in SODIUM CHLOR 0.9% 250 ML INJ 250 ML IV SCH ×2 (05:00→16:07)
[2016-10-19 06:27] VITALS: BP 122/65; PULSE 81; RESP 16; TEMP 98.1; O2SAT 95
--- NOTE | 2016-10-19 08:43 | HHI.PYPN ---
Subjective Remarks Patient seen in his room with sitter and nurse 1. Patient dressed in slacks and shirt sitting beside his bed. Chart reviewed. Patient calmer more appropriate with better eye contact more verbal with better processing. Going to some detail about his living situation with his mother. 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 It appears this is causing some depression and resentment in a.m. He states he has no other significant life except caring for her. And that the majority of his extended family is up in [place]. It appears he feels he may have been sent down here from [place] to be caregiver with his mother. Today he denies suicidality and denies voices he showing some resistance to oral medications feels like he doesn't need it. Though he is tolerating the IM medications without problems. For now continue treatment Review of Systems Except as stated in HPI: all other systems reviewed are Neg Objective Alert: Yes [place]: Person Mood: Oppositional Affect: Flat, Blunted Memory Intact: Comment (no formally assessed) Hallucinations: Other (not formally assessed) Delusions: Yes (paranoid) Delusion Type: Paranoid Suicidal: Ideation (he denies) Homicidal: Ideation (he denies) Insight/Judgment Very poor Vitals/IOs Vital Signs Date Time Temp Pulse Resp B/P Pulse Ox O2 Delivery O2 Flow Rate FiO2 10/19/16 06:27 98.1 81 16 122/65 95 Intake and Output 10/18/16 10/18/16 10/19/16 08:00 16:00 00:00 Intake Total 600 ml 1200 ml Balance 600 ml 1200 ml Assessment & Plan Problem List: (1) Unspecified psychosis ICD Code: F29 (2) Catatonia ICD Code: F06.1 Assessment & Plan Estimated LOS: days patient somewhat calmer today, more verbal with improved eye contact. Solution reluctance to take oral medication. For now continue treatment Justification for Cont. Inpt. At this time patient will decompensate if placed in the lower level of care Discharge Planning To be determined Jey Ochoa MD Oct 19, 2016 08:43
[2016-10-19] MEDS: LACTOBACILLUS ACIDOPHILUS TAB PO SCH ×3 (08:45→18:00)
[2016-10-19] MEDS: THIAMINE HCL 100 MG TAB PO SCH (08:45)
[2016-10-19] MEDS: FOLIC ACID 1 MG TAB PO SCH (08:45)
[2016-10-19] MEDS: FERROUS SULFATE 325 MG (65 MG ELEMENTAL IRON) TAB PO SCH (08:45)
[2016-10-19] MEDS: REMOVE OLD NICOTINE PATCH T-DERMAL SCH (08:46)
[2016-10-19] MEDS: NICOTINE 21 MG/24 HR PATCH T-DERMAL SCH (08:46)
[2016-10-19] MEDS: ZIPRASIDONE MESYLATE 20 MG VIAL IM SCH ×2 (09:00→21:00)
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
[2016-10-19 18:00] VITALS: BP 127/62; PULSE 87; RESP 18; TEMP 98; O2SAT 99
[2016-10-19] MEDS: LEVOFLOXACIN 750 MG PREMIX INJ 150 ML IV SCH (18:00)
[2016-10-19 20:16] VITALS: BP 128/64; PULSE 94; RESP 18; O2SAT 98
[2016-10-20] MEDS: DOXYCYCLINE INJ 200 MG in SODIUM CHLOR 0.9% 250 ML INJ 250 ML IV SCH (04:46)
[2016-10-20 06:09] VITALS: BP 132/69; PULSE 79; RESP 16; TEMP 98.4; O2SAT 99
[2016-10-20] MEDS: THIAMINE HCL 100 MG TAB PO SCH (09:00)
[2016-10-20] MEDS: ZIPRASIDONE MESYLATE 20 MG VIAL IM SCH (09:00)
[2016-10-20] MEDS: NICOTINE 21 MG/24 HR PATCH T-DERMAL SCH (09:00)
[2016-10-20] MEDS: LACTOBACILLUS ACIDOPHILUS TAB PO SCH ×3 (09:00→17:44)
[2016-10-20] MEDS: FERROUS SULFATE 325 MG (65 MG ELEMENTAL IRON) TAB PO SCH (09:00)
[2016-10-20] MEDS: FOLIC ACID 1 MG TAB PO SCH (09:00)
[2016-10-20] MEDS: ARIPiprazole 5 MG TAB PO SCH (13:00)
--- NOTE | 2016-10-20 13:12 | HHI.PYPN ---
Subjective Remarks Patient was seen today for psychiatric reevaluation, patient was found sitting in his chair, he was calm, a little bit guarded. Patient stated that he feels better, he says that he has been thinking about his situation and he knows that something is going wrong inside his head. He says that he has been afraid to take medications because he is very concerned about side effects, but he understands that in order to get better he may need medications. Patient says that there is a "lot of things going on inside my mind", but refused to elaborate about that. He says that part of his problem is that he is very concerned about his mother alcoholism and her medical issues. At the moment of the evaluation patient has moments of thought blocking, loosening of associations and internal preoccupations, but he seems to be more redirectable and insightful of days before. We have a long conversation about the benefits of by mouth antipsychotic vs IM antipsychotics. Patient finally agreed to take Abilify by mouth and then transition to once a month Depo medication. He also agrees to staying in the hospital as long as is necessary. His mother came to the unit today and showed us several messages written in Facebook before patient was hospitalized, many of them with a lot of psychotic, disorganized, hyperreligious, hypersexual and very bizarre content. She also clarifies the patient has been over a year percent in social withdrawal, delusions of having his penis strangulated, and also preoccupations about his health, his eating and sexuality. Review of Systems Other No somatic complaints Objective Alert: Yes [place]: Person, Place, Date, Situation Mood: Calm Affect: Flat, Blunted Memory Intact: Immediate, Recent, Remote Hallucinations: Other (he denies) Delusions: Yes (paranoid) Delusion Type: Paranoid Suicidal: Ideation (he denies) Homicidal: Ideation (he denies) Insight/Judgment improved Vitals/IOs Vital Signs Date Time Temp Pulse Resp B/P Pulse Ox O2 Delivery O2 Flow Rate FiO2 10/20/16 06:09 98.4 79 16 132/69 99 Intake and Output 10/19/16 10/19/16 10/20/16 08:00 16:00 00:00 Intake Total 480 ml 360 ml 1200 ml Balance 480 ml 360 ml 1200 ml Assessment & Plan Problem List: (1) Unspecified psychosis ICD Code: F29 (2) Catatonia ICD Code: F06.1 (3) Schizophrenia Assessment & Plan: Patient seems to be more communicative today, with periodic lucidity and able to provide more information. He finally accepts to take by mouth medications and is open to the idea of continuing hospitalization for stabilization. However, patient continues to be delusional, acutely psychotic, with marked blocking thought, paranoia and internal preoccupation. As per conversation with his mother there are several elements of patient's history that suggests the patient meets criteria for schizophrenia diagnosis. Will discontinue IM medications today and will start Abilify 5 mg. Extensive support , motivation psycho education provided. ICD Code: F20.9 Assessment & Plan Estimated LOS: days Justification for Cont. Inpt. Patient is acutely psychotic and needs to continue psychiatric hospitalization for stabilization Problem Qualifiers (1) Schizophrenia: Qualified Code: F20.0 - Paranoid schizophrenia Sridhar Thompson MD Oct 20, 2016 13:12
--- NOTE | 2016-10-20 14:51 | HHI.PR ---
Addendum to Inpatient Note Additional Information LUE wound clx + for RARE GROWTH VIBRIO ALGINOLYTICUS rosen S cont levaquine, can be switched to PO Levaquine if pt is compliant with po pills Stop date 2 weeks from the day of surgery: 10/24 Giovanna Vogel MD Oct 20, 2016 14:51
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
[2016-10-20 17:16] VITALS: BP 117/58; PULSE 71; RESP 18; TEMP 98.8; O2SAT 98
[2016-10-20] MEDS: LEVOFLOXACIN 750 MG PREMIX INJ 150 ML IV SCH (17:44)
[2016-10-20] MEDS: REMOVE OLD NICOTINE PATCH T-DERMAL SCH (21:00)
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
[2016-10-21 05:57] VITALS: BP 117/56; PULSE 75; RESP 18; TEMP 98.4; O2SAT 97
[2016-10-21] MEDS: LACTOBACILLUS ACIDOPHILUS TAB PO SCH ×3 (09:00→18:00)
[2016-10-21] MEDS: FERROUS SULFATE 325 MG (65 MG ELEMENTAL IRON) TAB PO SCH (09:00)
[2016-10-21] MEDS: THIAMINE HCL 100 MG TAB PO SCH (09:00)
[2016-10-21] MEDS: FOLIC ACID 1 MG TAB PO SCH (09:00)
[2016-10-21] MEDS: ARIPiprazole 5 MG TAB PO SCH (09:00)
[2016-10-21] MEDS: NICOTINE 21 MG/24 HR PATCH T-DERMAL SCH (09:00)
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
--- NOTE | 2016-10-21 10:48 | HHI.PYPN ---
Subjective Remarks Patient was seen for psychiatric reevaluation today along with nurse in charge Uday Killian, I spoke with the patient while walking in the unit. Today patient is calm, cooperative and pleasant, he does not seem to be as paranoid and guarded as he was yesterday. He says that he has been feeling better, last night had a good sleep. He also said that he feels safe in the unit and he trust people here "you seem to be agreeable denies people that want to help me" . He says that he has been is struggling with ideas in his mind "that are dangerous and poisoning me", but he does not elaborate about the content of this idea. He does say that he regrets hurting himself "because I hurt my friends and I also hurt my family". He denies suicidal and homicidal behavior he denies visual and auditory hallucination at this moment. As per nursing charge patient has been definitely doing better, but at times disorganized, guarded and paranoid. Review of Systems Other No somatic complaints Objective Alert: Yes [place]: Person, Place, Date, Situation Mood: Calm Affect: Flat, Blunted Memory Intact: Immediate, Recent, Remote Hallucinations: Other (he denies) Delusions: Yes (paranoid) Delusion Type: Paranoid Suicidal: Ideation (he denies) Homicidal: Ideation (he denies) Insight/Judgment Poor Vitals/IOs Vital Signs Date Time Temp Pulse Resp B/P Pulse Ox O2 Delivery O2 Flow Rate FiO2 10/21/16 05:57 98.4 75 18 117/56 97 Intake and Output 10/20/16 10/20/16 10/21/16 08:00 16:00 00:00 Intake Total 1040 ml 1440 ml 960 ml Balance 1040 ml 1440 ml 960 ml Assessment & Plan Problem List: (1) Unspecified psychosis ICD Code: F29 (2) Catatonia ICD Code: F06.1 (3) Schizophrenia Assessment & Plan: Patient has shown little improvement, he is less guarded and paranoid today, we will increase Abilify to 10 mg to manage psychosis. We discussed with the team the possibility of discontinuing sitter. ICD Code: F20.9 Assessment & Plan Estimated LOS: days Justification for Cont. Inpt. Patient continues to be acutely psychotic, is to continue psychiatric hospitalization for stabilization Problem Qualifiers (1) Schizophrenia: Qualified Code: F20.0 - Paranoid schizophrenia Sridhar Thompson MD Oct 21, 2016 10:48
[2016-10-21] MEDS: LEVOFLOXACIN 750 MG PREMIX INJ 150 ML IV SCH (18:00)
[2016-10-21 19:25] VITALS: BP 126/65; PULSE 91; RESP 17; TEMP 97.4; O2SAT 100
[2016-10-21] MEDS: REMOVE OLD NICOTINE PATCH T-DERMAL SCH (20:49)
[2016-10-22 06:14] VITALS: BP 107/58; PULSE 74; RESP 18; TEMP 98.2; O2SAT 96
[2016-10-22] MEDS: FOLIC ACID 1 MG TAB PO SCH (08:37)
[2016-10-22] MEDS: LACTOBACILLUS ACIDOPHILUS TAB PO SCH ×3 (08:37→17:53)
[2016-10-22] MEDS: FERROUS SULFATE 325 MG (65 MG ELEMENTAL IRON) TAB PO SCH (08:37)
[2016-10-22] MEDS: NICOTINE 21 MG/24 HR PATCH T-DERMAL SCH (08:38)
[2016-10-22] MEDS: THIAMINE HCL 100 MG TAB PO SCH (08:38)
[2016-10-22] MEDS ORDERED: ARIPiprazole 5 MG TAB PO SCH (09:00)
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
[2016-10-22] MEDS: LEVOFLOXACIN 750 MG PREMIX INJ 150 ML IV SCH (18:00)
[2016-10-22 19:00] VITALS: BP 120/64; PULSE 85; RESP 17; TEMP 98.2; O2SAT 98
[2016-10-22] MEDS: REMOVE OLD NICOTINE PATCH T-DERMAL SCH (21:00)
[2016-10-23 06:31] VITALS: BP 103/76; PULSE 82; RESP 16; TEMP 98; O2SAT 97
[2016-10-23] MEDS ORDERED: ARIPiprazole 15 MG TAB PO SCH (09:00)
[2016-10-23] MEDS: NICOTINE 21 MG/24 HR PATCH T-DERMAL SCH (09:00)
[2016-10-23] MEDS: FERROUS SULFATE 325 MG (65 MG ELEMENTAL IRON) TAB PO SCH (09:48)
[2016-10-23] MEDS: FOLIC ACID 1 MG TAB PO SCH (09:48)
[2016-10-23] MEDS: LACTOBACILLUS ACIDOPHILUS TAB PO SCH ×3 (09:48→18:00)
[2016-10-23] MEDS: THIAMINE HCL 100 MG TAB PO SCH (09:48)
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
--- NOTE | 2016-10-23 12:24 | HHI.PYPN ---
Subjective Remarks Patient was seen today for psychiatric evaluation along with nurse in charge Caleb, patient was calm, cooperative and talkative. He explains that he has been doing much better in the unit, thinking a lot about recent things in his life. He says that he has always felt very guilty about not being enough for the society and his family. Patient shares deep preoccupation with his gastrointestinal and mental health, he says that he has been spending hours and hours researching about healthy food in the Internet and he has been very careful with what he eats "because I want to feel dirty inside of me and I don' t want to feel my mind cloudy". Patient expresses motivation to get better, he seems to accept "my mind is not working very well", was to continue his medications. He denies suicidal and homicidal ideation, he denies visual and auditory hallucinations at this moment. However somatic preoccupations/ delusions, internal stimulation, blocking thought respiratory speech are still present. Review of Systems Other No somatic complaints Objective Alert: Yes Bliss: Person, Place, Date, Situation Mood: Calm Affect: Flat, Blunted Memory Intact: Immediate, Recent, Remote Hallucinations: Other (he denies) Delusions: Yes (paranoid) Delusion Type: Paranoid, Other (somatic delusions) Suicidal: Ideation (he denies) Homicidal: Ideation (he denies) Insight/Judgment poor Vitals/IOs Vital Signs Date Time Temp Pulse Resp B/P Pulse Ox O2 Delivery O2 Flow Rate FiO2 10/23/16 06:31 98.0 82 16 103/76 97 Intake and Output 10/22/16 10/22/16 10/23/16 08:00 16:00 00:00 Intake Total 420 ml 960 ml Balance 420 ml 960 ml Assessment & Plan Problem List: (1) Unspecified psychosis ICD Code: F29 (2) Catatonia ICD Code: F06.1 (3) Schizophrenia Assessment & Plan: Patient has shown a significant improvement in thought process, behavior and insight, but continues to show somatic/paranoic/ nihilistic delusions, paranoia, blocking thought, internal preoccupation. He denies suicidal and homicidal ideation, he denies visual and auditory hallucinations. Will increase Abilify to 20 mg to help with remaining psychosis. Extensive psychoeducation, supportive motivation provided. Patient encouraged to get out of the unit, to walk, go out for outdoor activities if possible. ICD Code: F20.9 Assessment & Plan Estimated LOS: days Justification for Cont. Inpt. Patient remains psychotic, needs to continue psychiatric hospitalization for stabilization. Problem Qualifiers (1) Schizophrenia: Qualified Code: F20.0 - Paranoid schizophrenia Sridhar Thompson MD Oct 23, 2016 12:24
[2016-10-23] MEDS ORDERED: LEVOFLOXACIN 750 MG TAB PO SCH (15:00)
[2016-10-23] MEDS: REMOVE OLD NICOTINE PATCH T-DERMAL SCH (20:57)
[2016-10-24 06:04] VITALS: BP 131/65; PULSE 72; RESP 18; TEMP 98.3; O2SAT 96
[2016-10-24] MEDS: THIAMINE HCL 100 MG TAB PO SCH (09:00)
[2016-10-24] MEDS: LACTOBACILLUS ACIDOPHILUS TAB PO SCH ×3 (09:00→18:00)
[2016-10-24] MEDS: FOLIC ACID 1 MG TAB PO SCH (09:00)
[2016-10-24] MEDS: FERROUS SULFATE 325 MG (65 MG ELEMENTAL IRON) TAB PO SCH (09:00)
[2016-10-24] MEDS: NICOTINE 21 MG/24 HR PATCH T-DERMAL SCH (09:00)
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
[2016-10-24 16:00] VITALS: BP 117/58; PULSE 87; RESP 19; TEMP 98.3; O2SAT 94
[2016-10-24] MEDS: REMOVE OLD NICOTINE PATCH T-DERMAL SCH (21:00)
[2016-10-25 06:09] VITALS: BP 116/57; PULSE 80; RESP 16; TEMP 98.1; O2SAT 95
[2016-10-25] MEDS: LACTOBACILLUS ACIDOPHILUS TAB PO SCH ×3 (07:56→18:00)
[2016-10-25] MEDS: THIAMINE HCL 100 MG TAB PO SCH (07:56)
[2016-10-25] MEDS: NICOTINE 21 MG/24 HR PATCH T-DERMAL SCH (07:57)
[2016-10-25] MEDS: FERROUS SULFATE 325 MG (65 MG ELEMENTAL IRON) TAB PO SCH (07:57)
[2016-10-25] MEDS: FOLIC ACID 1 MG TAB PO SCH (07:57)
--- NOTE | 2016-10-25 12:13 | HHI.PYPN ---
Subjective Remarks On psychiatric evaluation today patient is found laying down his bed, staring at the roof, very distant, can of internally preoccupied, with marked blocking thought and negativism, however with redirection patient was able to say that he feels okay, he has been thinking a lot, he does not laboratory about the content of his thoughts, he denies visual and auditory hallucinations, he denies suicidal or homicidal ideation, patient is compliant with medications, no agitation, no hostility observed reported. Review of Systems Other No somatic complaints Objective Alert: Yes [place]: Person, Place, Date, Situation Mood: Calm Affect: Flat, Blunted Memory Intact: Immediate, Recent, Remote Hallucinations: Other (he denies) Delusions: Yes (paranoid) Delusion Type: Paranoid, Other (somatic delusions) Suicidal: Ideation (he denies) Homicidal: Ideation (he denies) Insight/Judgment poor Vitals/IOs Vital Signs Date Time Temp Pulse Resp B/P Pulse Ox O2 Delivery O2 Flow Rate FiO2 10/25/16 06:09 98.1 80 16 116/57 95 Intake and Output 10/24/16 10/24/16 10/25/16 08:00 16:00 00:00 Intake Total 960 ml 720 ml Output Total 1 ml Balance -1 ml 960 ml 720 ml Assessment & Plan Problem List: (1) Unspecified psychosis ICD Code: F29 (2) Catatonia ICD Code: F06.1 (3) Schizophrenia ICD Code: F20.9 Assessment & Plan Estimated LOS: days Justification for Cont. Inpt. Patient has a very increased risk of psychotic decompensation and danger to self out of an structured environment Problem Qualifiers (1) Schizophrenia: Qualified Code: F20.0 - Paranoid schizophrenia Sridhar Thompson MD Oct 25, 2016 12:13
[2016-10-25] MEDS: ACETAMINOPHEN 325 MG TAB PO PRN (13:33)
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
[2016-10-25 18:00] VITALS: BP 104/61; PULSE 80; RESP 18; TEMP 98.1; O2SAT 98
[2016-10-25] MEDS: REMOVE OLD NICOTINE PATCH T-DERMAL SCH (21:00)
[2016-10-26 06:31] VITALS: BP 96/52; PULSE 73; RESP 14; TEMP 97.2; O2SAT 98
[2016-10-26] MEDS: THIAMINE HCL 100 MG TAB PO SCH (08:53)
[2016-10-26] MEDS: LACTOBACILLUS ACIDOPHILUS TAB PO SCH ×3 (08:53→18:00)
[2016-10-26] MEDS: FERROUS SULFATE 325 MG (65 MG ELEMENTAL IRON) TAB PO SCH (08:53)
[2016-10-26] MEDS: FOLIC ACID 1 MG TAB PO SCH (08:53)
[2016-10-26] MEDS: NICOTINE 21 MG/24 HR PATCH T-DERMAL SCH (08:55)
--- NOTE | 2016-10-26 14:25 | HHI.PYPN ---
Subjective Remarks On psychiatric reevaluation today patient is found in his bed, he says that he feels better, endorses that he is happy to be in the unit and he had time to reflect and think about issues of his life. Patient reports good mood, reports "stressed and anxiety"about certain things that he refused to talk about. He denies suicidal and homicidal ideation, he denies visual and auditory hallucinations, however he is still seems to be a little paranoid, internally preoccupied. Nurses described having as a good patient, very easy to deal with , no problematic, without any agitation or aggressive behavior reported, but withdrawn and isolated. Yesterday he went out to outdoor activities he seemed to have a good time. Review of Systems Other No somatic complaints Objective Alert: Yes [place]: Person, Place, Date, Situation Mood: Calm Affect: Flat, Blunted Memory Intact: Immediate, Recent, Remote Hallucinations: Other (he denies) Delusions: Yes (paranoid) Delusion Type: Paranoid, Other (internally preoccupied) Suicidal: Ideation (he denies) Homicidal: Ideation (he denies) Insight/Judgment fair Vitals/IOs Vital Signs Date Time Temp Pulse Resp B/P Pulse Ox O2 Delivery O2 Flow Rate FiO2 10/26/16 06:31 97.2 73 14 96/52 98 Intake and Output 10/25/16 10/25/16 10/26/16 08:00 16:00 00:00 Intake Total 600 ml 480 ml 360 ml Balance 600 ml 480 ml 360 ml Assessment & Plan Problem List: (1) Unspecified psychosis ICD Code: F29 (2) Catatonia ICD Code: F06.1 (3) Schizophrenia Assessment & Plan: Will increase Abilify to 30 mg daily to help with remaining psychotic symptoms ICD Code: F20.9 Assessment & Plan Estimated LOS: days Justification for Cont. Inpt. Patient is to continue his psychiatric hospitalization for stabilization, medication management and monitoring, and because he has a very high increased risk of harming himself out of inpatient psychiatry Problem Qualifiers (1) Schizophrenia: Qualified Code: F20.0 - Paranoid schizophrenia Sridhar Thompson MD Oct 26, 2016 14:25
[2016-10-26 19:21] VITALS: BP 116/56; PULSE 77; RESP 16; TEMP 97.9; O2SAT 96
[2016-10-26] MEDS: REMOVE OLD NICOTINE PATCH T-DERMAL SCH (20:22)
[2016-10-27 05:31] VITALS: BP 110/64; PULSE 61; RESP 16; TEMP 98; O2SAT 97
[2016-10-27] MEDS: THIAMINE HCL 100 MG TAB PO SCH (08:52)
[2016-10-27] MEDS: ARIPiprazole 30 MG TAB PO SCH (08:52)
[2016-10-27] MEDS: FOLIC ACID 1 MG TAB PO SCH (08:52)
[2016-10-27] MEDS: LACTOBACILLUS ACIDOPHILUS TAB PO SCH ×3 (08:52→18:00)
[2016-10-27] MEDS: FERROUS SULFATE 325 MG (65 MG ELEMENTAL IRON) TAB PO SCH (08:52)
[2016-10-27] MEDS: NICOTINE 21 MG/24 HR PATCH T-DERMAL SCH (08:58)
--- NOTE | 2016-10-27 12:19 | HHI.PYPN ---
Subjective Remarks She is seen today for psychiatric evaluation, patient is found in his bed, he reports good mood, patient says that he feels much better and motivated to continue his medical and psychiatric care in outpatient basis. Patient denies depressive symptoms, he denies anxiety, he denies perceptual disturbances, suicidal or homicidal ideation, he denies visual and auditory hallucinations. He is oriented 3, no confusion, no gross cognitive impairment observed. Patient has been fully compliant with medications, no episodic agitation or aggressive behavior reported. No side effects of medication reported either. Review of Systems Other No somatic complaints Objective Alert: Yes [place]: Person, Place, Date, Situation Mood: Calm Affect: Blunted Memory Intact: Immediate, Recent, Remote Hallucinations: Other (he denies) Delusions: Yes (paranoid) Delusion Type: Other (no delusions observed today) Suicidal: Ideation (he denies) Homicidal: Ideation (he denies) Insight/Judgment Good Vitals/IOs Vital Signs Date Time Temp Pulse Resp B/P Pulse Ox O2 Delivery O2 Flow Rate FiO2 10/27/16 05:31 98.0 61 16 110/64 97 Intake and Output 10/26/16 10/26/16 10/27/16 08:00 16:00 00:00 Intake Total 360 ml 480 ml Balance 360 ml 480 ml Assessment & Plan Problem List: (1) Unspecified psychosis ICD Code: F29 (2) Catatonia ICD Code: F06.1 (3) Schizophrenia Assessment & Plan: Patient continues to show improvement in his psychosis, on reevaluation today no paranoia, no internal per patient, no thought blocking are observed. Most probably will order Abilify Maintena 400 mg IM this afternoon or tomorrow. ICD Code: F20.9 Assessment & Plan Estimated LOS: days Justification for Cont. Inpt. Patient needs to continue psychiatric hospitalization for stabilization and safety Problem Qualifiers (1) Schizophrenia: Qualified Code: F20.0 - Paranoid schizophrenia Sridhar Thompson MD Oct 27, 2016 12:19
[2016-10-27] MEDS: ACETAMINOPHEN 325 MG TAB PO PRN (16:03)
[2016-10-27] MEDS ORDERED: ABILIFY MAINTENA 400 MG IM ONE (17:00)
[2016-10-27 20:38] VITALS: BP 127/61; PULSE 70; RESP 18; TEMP 97.8; O2SAT 100
[2016-10-27] MEDS: REMOVE OLD NICOTINE PATCH T-DERMAL SCH (21:00)
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
[2016-10-28 06:37] VITALS: BP 125/63; PULSE 91; RESP 18; TEMP 97.8; O2SAT 98
[2016-10-28] MEDS: FERROUS SULFATE 325 MG (65 MG ELEMENTAL IRON) TAB PO SCH (08:46)
[2016-10-28] MEDS: NICOTINE 21 MG/24 HR PATCH T-DERMAL SCH (08:46)
[2016-10-28] MEDS: FOLIC ACID 1 MG TAB PO SCH (08:46)
[2016-10-28] MEDS: THIAMINE HCL 100 MG TAB PO SCH (08:46)
[2016-10-28] MEDS: ARIPiprazole 30 MG TAB PO SCH (08:46)
[2016-10-28] MEDS: LACTOBACILLUS ACIDOPHILUS TAB PO SCH ×3 (08:54→17:34)
--- NOTE | 2016-10-28 10:53 | HHI.PYPN ---
Subjective Remarks Patient continues to be flat and unemotional. He denies auditory or visual hallucinations but continues to express paranoid thinking. However he is compliant with medications. He received Abilify Maintena yesterday in addition to his oral Abilify. This physician will continue to monitor him on these medications but begin discharge planning and earnest. Review of Systems ROS Limitations: Clinical Condition Objective Alert: Yes [place]: Person, Place, Date, Situation Mood: Calm Affect: Blunted Memory Intact: Immediate, Recent, Remote Hallucinations: Other (he denies) Delusions: Yes (paranoid) Delusion Type: Paranoid, Other (no delusions observed today) Suicidal: Ideation (he denies) Homicidal: Ideation (he denies) Insight/Judgment Impaired Vitals/IOs Vital Signs Date Time Temp Pulse Resp B/P Pulse Ox O2 Delivery O2 Flow Rate FiO2 10/28/16 06:37 97.8 91 18 125/63 98 Intake and Output 10/27/16 10/27/16 10/28/16 08:00 16:00 00:00 Intake Total 240 ml Balance 240 ml Assessment & Plan Problem List: (1) Schizophrenia ICD Code: F20.9 (2) Unspecified psychosis ICD Code: F29 (3) Catatonia ICD Code: F06.1 Assessment & Plan Estimated LOS: 3 days. Patient continues to tolerate Abilify and Abilify Maintena and is compliant in other aspects, he may be evaluated and considered for discharge. However he currently remains delusional with paranoid ideation. Justification for Cont. Inpt. Psychotic and unable to care for self. Problem Qualifiers (1) Schizophrenia: Qualified Code: F20.0 - Paranoid schizophrenia Jaziel Juarez MD Oct 28, 2016 10:53
[2016-10-28 19:00] VITALS: BP 116/63; PULSE 88; RESP 18; TEMP 98.4; O2SAT 98
[2016-10-28] MEDS: REMOVE OLD NICOTINE PATCH T-DERMAL SCH (21:00)
[2016-10-29 06:29] VITALS: BP 122/65; PULSE 84; RESP 18; TEMP 98.1; O2SAT 95
[2016-10-29] MEDS: NICOTINE 21 MG/24 HR PATCH T-DERMAL SCH (09:00)
[2016-10-29] MEDS: LACTOBACILLUS ACIDOPHILUS TAB PO SCH ×3 (09:00→17:44)
[2016-10-29] MEDS: ARIPiprazole 30 MG TAB PO SCH (09:07)
[2016-10-29] MEDS: FOLIC ACID 1 MG TAB PO SCH (09:07)
[2016-10-29] MEDS: FERROUS SULFATE 325 MG (65 MG ELEMENTAL IRON) TAB PO SCH (09:07)
[2016-10-29] MEDS: THIAMINE HCL 100 MG TAB PO SCH (09:07)
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
[2016-10-29 18:02] VITALS: BP 116/57; PULSE 84; RESP 17; TEMP 98.7; O2SAT 99
[2016-10-29] MEDS: REMOVE OLD NICOTINE PATCH T-DERMAL SCH (21:00)
[2016-10-29] MEDS: ACETAMINOPHEN 325 MG TAB PO PRN (23:53)
[2016-10-30 06:01] VITALS: BP 123/74; PULSE 92; RESP 18; TEMP 98.3; O2SAT 99
[2016-10-30] MEDS: FOLIC ACID 1 MG TAB PO SCH (08:57)
[2016-10-30] MEDS: ARIPiprazole 30 MG TAB PO SCH (08:57)
[2016-10-30] MEDS: THIAMINE HCL 100 MG TAB PO SCH (08:57)
[2016-10-30] MEDS: FERROUS SULFATE 325 MG (65 MG ELEMENTAL IRON) TAB PO SCH (08:57)
[2016-10-30] MEDS: NICOTINE 21 MG/24 HR PATCH T-DERMAL SCH (09:00)
[2016-10-30] MEDS: LACTOBACILLUS ACIDOPHILUS TAB PO SCH ×3 (09:00→18:00)
--- NOTE | 2016-10-30 15:32 | HHI.PYPN ---
Subjective Remarks Continues to appear flat, withdrawn, blunted but otherwise cooperative. He remains socially reclusive. Review of Systems ROS Limitations: Clinical Condition Objective Alert: Yes [place]: Person, Place, Date, Situation Mood: Calm Affect: Blunted Memory Intact: Immediate, Recent, Remote Hallucinations: Other (he denies) Delusions: Yes (paranoid) Delusion Type: Paranoid, Other (no delusions observed today) Suicidal: Ideation (he denies) Homicidal: Ideation (he denies) Insight/Judgment Impaired but most likely baseline. Vitals/IOs Vital Signs Date Time Temp Pulse Resp B/P Pulse Ox O2 Delivery O2 Flow Rate FiO2 10/30/16 06:01 98.3 92 18 123/74 99 Assessment & Plan Problem List: (1) Schizophrenia ICD Code: F20.9 (2) Unspecified psychosis ICD Code: F29 (3) Catatonia ICD Code: F06.1 Assessment & Plan Estimated LOS: 1 days patient may be discharged tomorrow if he has a place to go with his mother. Justification for Cont. Inpt. Awaiting appropriate placement. Problem Qualifiers (1) Schizophrenia: Qualified Code: F20.0 - Paranoid schizophrenia Jaziel Juarez MD Oct 30, 2016 15:32
[2016-10-30] MEDS: REMOVE OLD NICOTINE PATCH T-DERMAL SCH (20:26)
[2016-10-31 05:59] VITALS: BP 120/73; PULSE 62; RESP 18; TEMP 97.9; O2SAT 96
[2016-10-31] MEDS: LACTOBACILLUS ACIDOPHILUS TAB PO SCH ×3 (08:05→16:49)
[2016-10-31] MEDS: NICOTINE 21 MG/24 HR PATCH T-DERMAL SCH (09:00)
[2016-10-31] MEDS: THIAMINE HCL 100 MG TAB PO SCH (09:18)
[2016-10-31] MEDS: FOLIC ACID 1 MG TAB PO SCH (09:18)
[2016-10-31] MEDS: ARIPiprazole 30 MG TAB PO SCH (09:18)
[2016-10-31] MEDS: FERROUS SULFATE 325 MG (65 MG ELEMENTAL IRON) TAB PO SCH (09:18)
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
[2016-10-31] MEDS ORDERED: ABIL30TA2 PO (13:01)
[2016-10-31] MEDS ORDERED: LACT PO (13:01)
== END 2016-10-31 20:25 | disposition home or self-care (01) | DRG 885 ==
LOC: EDBD 12:45 → H4EA 12:45 → H260 10-27 17:30
PROVIDERS: ADMIT Psychiatry & Neurology Psychiatry; ATTEND Psychiatry & Neurology Psychiatry
DX: F20.0 Paranoid schizophrenia (principal); A41.9 Sepsis, unspecified organism; G93.40 Encephalopathy, unspecified; S21.312A Laceration without foreign body of left front wall of thorax with penetration into thoracic cavity, initial encounter; N17.9 Acute kidney failure, unspecified; F84.0 Autistic disorder; S11.91XA Laceration without foreign body of unspecified part of neck, initial encounter; D64.9 Anemia, unspecified; S61.512A Laceration without foreign body of left wrist, initial encounter; X78.9XXA Intentional self-harm by unspecified sharp object, initial encounter; Y93.9 Activity, unspecified; Y92.9 Unspecified place or not applicable; Y99.9 Unspecified external cause status; Z88.6 Allergy status to analgesic agent; Z88.2 Allergy status to sulfonamides; Z81.8 Family history of other mental and behavioral disorders; F10.10 Alcohol abuse, uncomplicated; R74.8 Abnormal levels of other serum enzymes; R36.9 Urethral discharge, unspecified; F94.0 Selective mutism
CPT/HCPCS: 70450; 80048; 80053; 80061; 80074; 82550; 82728; 83036; 83540; 83550; 83735; 85007; 85025; 85027; 87040; 87491; 87591; 93005; J0692; J1200; J1956; J2060; J3486; J7050

== ENCOUNTER 2017-10-18 23:26 | Inpatient (IN) | payer OTHER ==
[~2017-10-18] VITALS: Ht 190.5 cm; Wt 103.0 kg
[~2017-10-18 23:26] MED LIST changes: +ABIL30TA5 PO; +LACT PO
[2017-10-18 23:44] VITALS: BP 156/99; PULSE 127; RESP 18; TEMP 98.5; O2SAT 96
--- NOTE | 2017-10-19 00:10 | PD ---
HPI Chief Complaint: Psychiatric Symptoms Time Seen by Provider: 00:02 Travel History International Travel<30 days: No Contact w/Intl Traveler<30days: No Traveled to known affect area: No History of Present Illness HPI 21-year-old white male with a history of Asperger's, schizophrenia and prior suicide attempts presents emergency department under [place] act by PD. Fire rescue had responded to a 911 call. On evaluation of the seen the patient's mother had . The patient lives with his mother and her boyfriend. According to police they feel that she probably of natural causes. She had a history of alcohol abuse. At the scene the patient did not appear to be able to care for himself. He would not believe that his mother had passed. PD was concerned regarding his Asperger's and felt it would be in his benefit to come to the hospital under a [place] act. According to PD the patient has had attempted suicide in the past by cutting his neck with a knife. We were going to contact [facility]. The patient denies making any suicidal homicidal statements. The patient agrees that his mother did pass. He states that he had seen his father in the past. Patient denies any medical complaints. PFSH Past Medical History Autoimmune Disease: No Anxiety: Yes Depression: Yes Cancer: No Cardiovascular Problems: No Chemotherapy: No Diabetes: No Patient Takes Glucophage: No Diminished Hearing: No Endocrine: No Genitourinary: No Headaches: No Immune Disorder: No Musculoskeletal: No Neurologic: Yes (ASPERGERS) Psychiatric: Yes (was at [facility] in past for Asperger) Reproductive: No Respiratory: No Immunizations Current: Yes Migraines: No Radiation Therapy: No Seizures: No Sickle Cell Disease: No Thyroid Disease: No Tetanus Vaccination: < 5 Years Influenza Vaccination: No Past Surgical History Surgical History: No Previous Surgery AICD: No Arteriovenous Shunt: No Insulin Pump: No Joint Replacement: No Pacemaker: No Social History Alcohol Use: Yes (OCCASIONAL) Tobacco Use: Yes Substance Use: Yes Allergies-Medications (Allergen,Severity, Reaction): Coded Allergies: Sulfa (Sulfonamide Antibiotics) (Unverified Allergy, Severe, unknown , 10/18) Reported Meds & Prescriptions Reported Meds & Active Scripts Active No Active Prescriptions or Reported Medications Review of Systems General / Constitutional: No: Fever Eyes: No: Visual changes HENT: No: Headaches Cardiovascular: No: Chest Pain or Discomfort Respiratory: No: Shortness of Breath Gastrointestinal: No: Abdominal Pain Genitourinary: No: Dysuria Musculoskeletal: No: Pain Skin: No Rash Neurologic: No: Weakness Psychiatric: Positive: Depression, Mood Disorder, No: Anxiety, Suicidal Ideations, Disorder of Thought, Substance Abuse, Homicidal Ideation Endocrine: No: Polydipsia Hematologic/Lymphatic: No: Easy Bruising Physical Exam Narrative GENERAL: Well-nourished, well-developed patient. SKIN: Warm and dry. HEAD: Normocephalic and atraumatic. EYES: No scleral icterus. No injection or drainage. ENT: No nasal drainage noted. Mucous membranes pink. Airway patent. NECK: Supple, trachea midline. Moves head freely without obvious discomfort. CARDIOVASCULAR: Regular rate and rhythm without murmurs, gallops, or rubs. RESPIRATORY: Breath sounds equal bilaterally. No accessory muscle use. GASTROINTESTINAL: Abdomen soft, non-tender, nondistended. EXTREMITIES: No cyanosis or edema. BACK: Nontender without obvious deformity. No CVA tenderness. NEURO: Patient is alert and oriented. no sensorimotor deficits. Nonfocal. Normal speech. PSYCH: No delusions. No auditory or visual hallucinations. Data Data Last Documented VS Vital Signs Date Time Temp Pulse Resp B/P (MAP) Pulse Ox O2 Delivery O2 Flow Rate FiO2 10/18/17 23:44 98.5 127 18 156/99 (118) 96 Orders Orders Complete Blood Count With Diff (10/19/17 00:03) Comprehensive Metabolic Panel (10/19/17 00:03) Thyroid Stimulating Hormone (10/19/17 00:03) Psych Screen (10/19/17 00:03) Drug Screen, Random Urine (10/19/17 00:03) Alcohol (Ethanol) (10/19/17 00:03) Labs Laboratory Tests Test 10/18/17 23:50 White Blood Count 18.9 TH/MM3 Red Blood Count 5.92 MIL/MM3 Hemoglobin 17.7 GM/DL Hematocrit 52.3 % Mean Corpuscular Volume 88.3 FL Mean Corpuscular Hemoglobin 29.8 PG Mean Corpuscular Hemoglobin Concent 33.8 % Red Cell Distribution Width 12.8 % Platelet Count 282 TH/MM3 Mean Platelet Volume 9.2 FL Neutrophils (%) (Auto) 86.5 % Lymphocytes (%) (Auto) 8.3 % Monocytes (%) (Auto) 4.8 % Eosinophils (%) (Auto) 0.1 % Basophils (%) (Auto) 0.3 % Neutrophils # (Auto) 16.4 TH/MM3 Lymphocytes # (Auto) 1.6 TH/MM3 Monocytes # (Auto) 0.9 TH/MM3 Eosinophils # (Auto) 0.0 TH/MM3 Basophils # (Auto) 0.1 TH/MM3 CBC Comment DIFF FINAL Differential Comment Blood Urea Nitrogen 9 MG/DL Creatinine 1.16 MG/DL Random Glucose 120 MG/DL Total Protein 8.3 GM/DL Albumin 4.8 GM/DL Calcium Level 9.3 MG/DL Alkaline Phosphatase 79 U/L Aspartate Amino Transf (AST/SGOT) 16 U/L Alanine Aminotransferase (ALT/SGPT) 39 U/L Total Bilirubin 1.8 MG/DL Sodium Level 138 MEQ/L Potassium Level 4.2 MEQ/L Chloride Level 103 MEQ/L Carbon Dioxide Level 26.3 MEQ/L Anion Gap 9 MEQ/L Estimat Glomerular Filtration Rate 79 ML/MIN Thyroid Stimulating Hormone 3rd Gen 1.450 uIU/ML Urine Opiates Screen NEG Urine Barbiturates Screen NEG Urine Amphetamines Screen NEG Urine Benzodiazepines Screen NEG Urine Cocaine Screen NEG Urine Cannabinoids Screen NEG Ethyl Alcohol Level LESS THAN 3 MG/DL MDM Medical Decision Making Medical Screen Exam Complete: Yes Emergency Medical Condition: Yes Medical Record Reviewed: Yes Interpretation(s) Laboratory Tests Test 10/18/17 23:50 White Blood Count 18.9 TH/MM3 Red Blood Count 5.92 MIL/MM3 Hemoglobin 17.7 GM/DL Hematocrit 52.3 % Mean Corpuscular Volume 88.3 FL Mean Corpuscular Hemoglobin 29.8 PG Mean Corpuscular Hemoglobin Concent 33.8 % Red Cell Distribution Width 12.8 % Platelet Count 282 TH/MM3 Mean Platelet Volume 9.2 FL Neutrophils (%) (Auto) 86.5 % Lymphocytes (%) (Auto) 8.3 % Monocytes (%) (Auto) 4.8 % Eosinophils (%) (Auto) 0.1 % Basophils (%) (Auto) 0.3 % Neutrophils # (Auto) 16.4 TH/MM3 Lymphocytes # (Auto) 1.6 TH/MM3 Monocytes # (Auto) 0.9 TH/MM3 Eosinophils # (Auto) 0.0 TH/MM3 Basophils # (Auto) 0.1 TH/MM3 CBC Comment DIFF FINAL Differential Comment Blood Urea Nitrogen 9 MG/DL Creatinine 1.16 MG/DL Random Glucose 120 MG/DL Total Protein 8.3 GM/DL Albumin 4.8 GM/DL Calcium Level 9.3 MG/DL Alkaline Phosphatase 79 U/L Aspartate Amino Transf (AST/SGOT) 16 U/L Alanine Aminotransferase (ALT/SGPT) 39 U/L Total Bilirubin 1.8 MG/DL Sodium Level 138 MEQ/L Potassium Level 4.2 MEQ/L Chloride Level 103 MEQ/L Carbon Dioxide Level 26.3 MEQ/L Anion Gap 9 MEQ/L Estimat Glomerular Filtration Rate 79 ML/MIN Thyroid Stimulating Hormone 3rd Gen 1.450 uIU/ML Urine Opiates Screen NEG Urine Barbiturates Screen NEG Urine Amphetamines Screen NEG Urine Benzodiazepines Screen NEG Urine Cocaine Screen NEG Urine Cannabinoids Screen NEG Ethyl Alcohol Level LESS THAN 3 MG/DL Differential Diagnosis MDM: High Differential diagnoses: Schizophrenia, schizoaffective disorder, bipolar, anxiety, depression, adjustment reaction, mood disorder NOS, ODD, depressive disorder NOS, dementia, dementia with agitation, psychosis NOS, substance induced mood disorder, DMDD, Asperger syndrome, infection,electrolyte abnormality, malingering. Narrative Course Mental health screening discussed with the patient. Psychiatric screen ordered. The patient has been medically cleared. The patient has a mildly elevated white count and a mildly elevated total bilirubin. I suspect his white count is from demargination. Etiology of the elevated bilirubin is not a completely clear. I reviewed his medical record from prior admission which showed a mildly elevated bilirubin in the past. I see no reason to delay his medical clearance today from these clinical findings. I would recommend possibly repeating his labs in a day or 2 to see if they normalize. I do not believe these are related to any toxic ingestions. This medical clearance for psychiatric admission Diagnosis Primary Impression: Medical clearance for psychiatric admission Scripts No Active Prescriptions or Reported Meds Condition: Shreyas Conte Oct 19, 2017 00:10
[2017-10-19 00:15] LABS: AUTOMATED NEUTROPHIL # 16.4 TH/MM3 (1.8-7.7); BASOPHIL # 0.1 TH/MM3 (0-0.2); BASOPHIL % 0.3 % (0.0-2.0); EOSINOPHIL % 0.1 % (0.0-4.0); HEMATOCRIT 52.3 % (39.0-51.0); HEMOGLOBIN 17.7 GM/DL (13.0-17.0); LYMPH % 8.3 % (9.0-44.0); LYMPHOCYTE # 1.6 TH/MM3 (1.0-4.8); MEAN CELL VOLUME 88.3 FL (80.0-100.0); MEAN CORPUSCULAR HEMOGLOBIN 29.8 PG (27.0-34.0); MEAN CORPUSCULAR HGB CONC 33.8 % (32.0-36.0); MEAN PLATELET VOLUME 9.2 FL (7.0-11.0); MONO % 4.8 % (0.0-8.0); MONOCYTE # 0.9 TH/MM3 (0-0.9); NEUT % 86.5 % (16.0-70.0); PLATELET COUNT 282 TH/MM3 (150-450); RED BLOOD COUNT 5.92 MIL/MM3 (4.50-5.90); RED CELL DISTRIBUTION WIDTH 12.8 % (11.6-17.2); WHITE BLOOD COUNT 18.9 TH/MM3 (4.0-11.0)
[2017-10-19 00:33] LABS: ALBUMIN 4.8 GM/DL (3.4-5.0); ALT (GPT) 39 U/L (12-78); AST (GOT) 16 U/L (15-37); BICARBONATE 26.3 MEQ/L (21.0-32.0); BLOOD UREA NITROGEN 9 MG/DL (7-18); CALCIUM 9.3 MG/DL (8.5-10.1); CHLORIDE 103 MEQ/L (98-107); CREATININE 1.16 MG/DL (0.60-1.30); GLOMERULAR FILTRATION RATE 79 ML/MIN (>89); GLUCOSE,RANDOM 120 MG/DL (74-106); SODIUM (NA) 138 MEQ/L (136-145)
[2017-10-19 00:43] LABS: ALKALINE PHOSPHATASE 79 U/L (45-117); TOTAL BILIRUBIN ADULT 1.8 MG/DL (0.2-1.0); TOTAL PROTEIN 8.3 GM/DL (6.4-8.2)
[2017-10-19 08:34] VITALS: BP 143/74; PULSE 80; RESP 16; TEMP 98.2; O2SAT 100
[2017-10-19 16:20] VITALS: BP 133/76; PULSE 87; RESP 18; O2SAT 97
[2017-10-19 19:07] VITALS: BP 131/81; PULSE 76; RESP 18; O2SAT 98
[2017-10-19] MEDS ORDERED: ACETAMINOPHEN 325 MG TAB PO PRN (19:15)
[2017-10-19] MEDS ORDERED: MAGNESIUM HYDROXIDE SUSP 30 ML CUP PO PRN (19:15)
[2017-10-19] MEDS ORDERED: ALUMINUM/MAGNESIUM/SIMETH 30 ML CUP PO PRN (19:15)
--- NOTE | 2017-10-19 19:22 | PD ---
History of Present Illness Chief Complaint: Psychiatric Symptoms Time Seen by Provider: 19:00 Travel History International Travel<30 Days: No Contact w/Intl Traveler<30days: No Known affected area: No Legal Status Legal Status: [place] Signed By: Signed by Merom Senior Category Manager Ventura Davidson # [id number] [place] Act Comment: Signed by Merom Senior Category Manager Ventura Davidson # [id number] History of Present Illness: History of Present Illness HPI 21-year-old white male with a history of Asperger's, schizophrenia, prior suicide attempt in 2017 who presents emergency department under [place] act by PD. Fire rescue had responded to a 911 call and on arrival found his mother had . The patient lives with his mother and her boyfriend. At the scene the patient did not appear to be able to care for himself. He would not believe that his mother had . The patient has been monitored in secure environment. He has presented no behavioral concerns and no suicidality. Electronic medical record is reviewed. The patient has one admission to our inpatient psychiatric unit in October 13, 2016 for treatment of unspecified psychosis. The patient self-inflicted wounds to his neck and chest requiring surgical intervention. It appears that the patient did not follow-up with treatment after his discharge from the hospital. The patient seen in Main ED. He is alert, oriented, dressed in hospital scrubs with disheveled appearance and malodorous. He is oddly related with decreased amount of eye contact. The patient's affect that time is inappropriate as he smiles while talking about his mother's . He at times talks as if she is still alive and talks about taking care of her in the present tense. He states that" she is like my daughter". Mood is anxious. The patient denies any suicidal or homicidal ideation. The patient denies that he is currently hearing any voices although at times he does seem to be talking to himself. He is somewhat suspicious of staff and at times refuses to answer questions for fear of being railroaded into some situation.. PFSH Past Medical History Autoimmune Disease: No Anxiety: Yes Depression: Yes Cancer: No Cardiovascular Problems: No Chemotherapy: No Diabetes: No Patient Takes Glucophage: No Diminished Hearing: No Endocrine: No Genitourinary: No Headaches: No Immune Disorder: No Musculoskeletal: No Neurologic: Yes (ASPERGERS) Psychiatric: Yes (was at [facility] in past for Asperger) Reproductive: No Respiratory: No Immunizations Current: Yes Migraines: No Radiation Therapy: No Seizures: No Sickle Cell Disease: No Thyroid Disease: No Tetanus Vaccination: < 5 Years Influenza Vaccination: No Past Surgical History Surgical History: No Previous Surgery AICD: No Arteriovenous Shunt: No Insulin Pump: No Joint Replacement: No Pacemaker: No Psychiatric History Psychiatric History Hx Psychiatric Treatment: [facility] 2017 after self-inflicted wounds as a suicide attempt. He believed that the police were out to get him and he decided to kill himself before they took him to [facility]. The patient is currently not under psychiatric treatment History of Inpatient Treatment: Yes Guns or firearms in home: No Social History Hx Alcohol Use: Yes (OCCASIONAL) Hx Tobacco Use: Yes Hx Substance Use: No (Patient denies any current use/abuse.) Substance Use Type: Alcohol Hx of Substance Use Treatment: No Family Psychiatric History Mother with a large alcohol use disorder Allergies-Medications (Allergen,Severity, Reaction): Coded Allergies: Sulfa (Sulfonamide Antibiotics) (Unverified Allergy, Severe, unknown , 10/18) Reported Meds & Prescriptions Reported Meds & Active Scripts Active No Active Prescriptions or Reported Medications Review of Systems Except as stated in HPI: all other systems reviewed are Neg Mental Status Examination Appearance: Disheveled, Malodorous Consciousness: Alert Orientation: x4 Motor Activity: Normal gait Speech: Other (Rambling at times) Language: Adequate Fund of Knowledge: Adequate Attention and Concentration: Inadequate Memory: Unremarkable Mood: Other (Distant) Affect: Blunt, Other (Inappropriate smiling at times) Thought Process & Associations: Intact Thought Content: Appropriate Hallucination Type: None Delusion Type: None Suicidal Ideation: No Suicidal Plan: No Suicidal Intention: No Homicidal Ideation: No Homicidal Plan: No Homicidal Intention: No Insight: Poor Judgment: Adequate MDM Medical Decision Making Medical Record Reviewed: Yes Assessment/Plan 21-year-old white male with a history of Asperger's, schizophrenia, prior suicide attempt in 2017 who presents emergency department under [place] act by PD. Fire rescue had responded to a 911 call and on arrival found his mother had . The patient lives with his mother and her boyfriend. At the scene the patient did not appear to be able to care for himself. He would not believe that his mother had . The patient has been monitored in secure environment. He has presented no behavioral concerns and no suicidality. He has been somewhat anxious, suspicious of staff. At times talks of his mother is still alive. Out of an abundance of caution the patient will be admitted to inpatient psychiatry unit for observation, for safety and for stabilization. It is unclear if there is any support for him at home and at this time it is determined that it would be unsafe to discharge him home. Orders Orders Complete Blood Count With Diff (10/19/17 00:03) Comprehensive Metabolic Panel (10/19/17 00:03) Thyroid Stimulating Hormone (10/19/17 00:03) Psych Screen (10/19/17 00:03) Drug Screen, Random Urine (10/19/17 00:03) Alcohol (Ethanol) (10/19/17 00:03) Diet Regular Basic (10/19/17 Breakfast) Diet Regular Basic (10/19/17 Lunch) Diet Regular Basic (10/19/17 Dinner) Results Vital Signs Date Time Temp Pulse Resp B/P (MAP) Pulse Ox O2 Delivery O2 Flow Rate FiO2 10/19/17 19:07 76 18 131/81 (98) 98 Room Air 10/19/17 16:20 87 18 133/76 (95) 97 Room Air 10/19/17 08:34 98.2 80 16 143/74 (97) 100 Room Air 10/18/17 23:44 98.5 127 18 156/99 (118) 96 Laboratory Tests Test 10/18/17 23:50 White Blood Count 18.9 Red Blood Count 5.92 Hemoglobin 17.7 Hematocrit 52.3 Mean Corpuscular Volume 88.3 Mean Corpuscular Hemoglobin 29.8 Mean Corpuscular Hemoglobin Concent 33.8 Red Cell Distribution Width 12.8 Platelet Count 282 Mean Platelet Volume 9.2 Neutrophils (%) (Auto) 86.5 Lymphocytes (%) (Auto) 8.3 Monocytes (%) (Auto) 4.8 Eosinophils (%) (Auto) 0.1 Basophils (%) (Auto) 0.3 Neutrophils # (Auto) 16.4 Lymphocytes # (Auto) 1.6 Monocytes # (Auto) 0.9 Eosinophils # (Auto) 0.0 Basophils # (Auto) 0.1 CBC Comment DIFF FINAL Differential Comment Blood Urea Nitrogen 9 Creatinine 1.16 Random Glucose 120 Total Protein 8.3 Albumin 4.8 Calcium Level 9.3 Alkaline Phosphatase 79 Aspartate Amino Transf (AST/SGOT) 16 Alanine Aminotransferase (ALT/SGPT) 39 Total Bilirubin 1.8 Sodium Level 138 Potassium Level 4.2 Chloride Level 103 Carbon Dioxide Level 26.3 Anion Gap 9 Estimat Glomerular Filtration Rate 79 Thyroid Stimulating Hormone 3rd Gen 1.450 Urine Opiates Screen NEG Urine Barbiturates Screen NEG Urine Amphetamines Screen NEG Urine Benzodiazepines Screen NEG Urine Cocaine Screen NEG Urine Cannabinoids Screen NEG Ethyl Alcohol Level LESS THAN 3 Diagnosis Primary Impression: Medical clearance for psychiatric admission Additional Impression: Schizophrenia Admitting Information Admitting Physician Requests: Admit Prescriptions No Active Prescriptions or Reported Meds Condition: Stable Problem Qualifiers Additional Impression: Schizophrenia Qualified Codes: F20.9 - Schizophrenia, unspecified Cait Marsh [facility] Oct 19, 2017 19:22
[2017-10-19 22:25] VITALS: BP 139/94; PULSE 70; RESP 15; TEMP 97.7; O2SAT 99
[2017-10-20 06:00] VITALS: BP 97/62; PULSE 64; RESP 16; TEMP 98.1; O2SAT 98
[2017-10-20 08:45] LABS: BICARBONATE 27.3 MEQ/L (21.0-32.0); BLOOD UREA NITROGEN 11 MG/DL (7-18); CALCIUM 8.6 MG/DL (8.5-10.1); CHLORIDE 108 MEQ/L (98-107); CREATININE 0.94 MG/DL (0.60-1.30); GLOMERULAR FILTRATION RATE 100 ML/MIN (>89); GLUCOSE,RANDOM 84 MG/DL (74-106); SODIUM (NA) 141 MEQ/L (136-145)
[2017-10-20 08:46] LABS: CHOLESTEROL 119 MG/DL (120-200); TRIGLYCERIDES 112 MG/DL (42-150)
[2017-10-20 08:48] LABS: CHOLESTEROL/ HDL RATIO 3.29 RATIO; HDL CHOLESTEROL 36.1 MG/DL (40.0-60.0); LDL CHOLESTEROL 61 MG/DL (0-99)
[2017-10-20 11:35] LABS: AUTOMATED NEUTROPHIL # 4.4 TH/MM3 (1.8-7.7); BASOPHIL % 0.6 % (0.0-2.0); EOSINOPHIL # 0.1 TH/MM3 (0-0.4); EOSINOPHIL % 1.7 % (0.0-4.0); HEMATOCRIT 45.6 % (39.0-51.0); HEMOGLOBIN 16.1 GM/DL (13.0-17.0); LYMPH % 31.8 % (9.0-44.0); LYMPHOCYTE # 2.5 TH/MM3 (1.0-4.8); MEAN CELL VOLUME 89.6 FL (80.0-100.0); MEAN CORPUSCULAR HEMOGLOBIN 31.7 PG (27.0-34.0); MEAN CORPUSCULAR HGB CONC 35.4 % (32.0-36.0); MEAN PLATELET VOLUME 9.4 FL (7.0-11.0); MONO % 10.3 % (0.0-8.0); MONOCYTE # 0.8 TH/MM3 (0-0.9); NEUT % 55.6 % (16.0-70.0); PLATELET COUNT 223 TH/MM3 (150-450); RED BLOOD COUNT 5.09 MIL/MM3 (4.50-5.90); RED CELL DISTRIBUTION WIDTH 12.9 % (11.6-17.2); WHITE BLOOD COUNT 7.9 TH/MM3 (4.0-11.0)
[2017-10-20] MEDS ORDERED: diphenhydrAMINE HCL 50 MG CAP PO PRN (12:30)
[2017-10-20] MEDS ORDERED: hydrOXYzine HCL 50 MG TAB PO PRN (12:30)
--- NOTE | 2017-10-20 14:31 | PD.PSY.CON ---
Provisional Diagnosis Admission Date Oct 19, 2017 at 19:39 History of Present Illness Service Psychiatry Consult Requested By Psychiatric Reason for Consult Second opinion Primary Care Physician No Primary Care Physician HPI The is a 21-year-old man, single, no children, unemployed, previously living with mother and mother's boyfriend, with a past psychiatric history of autism spectrum disorder, schizophrenia, one previous psychiatric admission in 2017, history of prior suicide attempt (10/2016), no substance use history, no past medical history, who was brought into the ED at the [facility] by police after 911 was called and patient's mother had at home which there was concern for patient's ability to be able to care for self which patient was admitted to the inpatient psychiatry for further evaluation and management. Patient was consulted to me for second opinion. He is calm, cooperative, pleasant. He immediately recognized me from his previous admission in 2017. He reports that the reason he is in the hospital is because his mother and now he does not have a place to live "they seen that I will not be able to take care of myself, but might family are coming to pick me up". He denies SI/HI/VH/ AH. Review of Systems Constitutional: DENIES: Diaphoretic episodes, Fatigue, Fever, Weight gain, Weight loss, Chills, Dizziness, Change in appetite, Night Sweats Endocrine: DENIES: Heat/cold intolerance, Polydipsia, Polyuria, Polyphagia Eyes: DENIES: Blurred vision, Diplopia, Eye inflammation, Eye pain, Vision loss , Photosensitivity, Double Vision Ears, nose, mouth, throat: DENIES: Tinnitus, Hearing loss, Vertigo, Nasal discharge, Oral lesions, Throat pain, Hoarseness, Ear Pain, Running Nose, Epistaxis, Sinus Pain, Toothache, Odynophagia Respiratory: DENIES: Apneas, Cough, Snoring, Wheezing, Hemoptysis, Sputum production, Shortness of breath Cardiovascular: DENIES: Chest pain, Palpitations, Syncope, Dyspnea on Exertion , PND, Lower Extremity Edema, Orthopnea, Claudication Genitourinary: DENIES: Sexual dysfunction, Urinary frequency, Urinary incontinence, Urgency, Hematuria, Dysuria, Nocturia, Penile Discharge, Testicular Pain, Testicular Swelling Musculoskeletal: DENIES: Joint pain, Muscle aches, Stiffness, Joint Swelling, Back pain, Neck pain Integumentary: DENIES: Abnormal pigmentation, Nail changes, Pruritus, Rash Hematologic/lymphatic: DENIES: Bruising, Lymphadenopathy Immunologic/allergic: DENIES: Eczema, Urticaria Neurologic: DENIES: Abnormal gait, Headache, Localized weakness, Paresthesias, Seizures, Speech Problems, Tremor, Poor Balance Psychiatric: DENIES: Anxiety, Confusion, Mood changes, Depression, Hallucinations, Agitation, Suicidal Ideation, Homicidal Ideation, Delusions Past Family Social History Coded Allergies: Sulfa (Sulfonamide Antibiotics) (Unverified Allergy, Severe, unknown , 10/18) Discontinued Scripts Lactobacillus Acidophilus (Acidophilus/l-Sporogenes) 1 Tab Tab, 1 TAB PO TID, # 90 TAB Prov:Jaziel Juarez MD 10/31/16 Aripiprazole (Abilify) 30 Mg Tab, 30 MG PO DAILY, #30 TAB Prov:Jaziel Juarez MD 10/31/16 Acetaminophen (Tylenol) 325 Mg Tab, 650 MG PO Q4H Y for pain for 30 Days, TAB 0 Refills Prov:Ambika Cotto [employer] 10/13/16 Docusate Sodium (Dok) 100 Mg Cap, 100 MG PO BID for Constipation for 30 Days, CAP Prov:Ambika Cotto [employer] 10/12/16 Magnesium Hydroxide Liq (Milk of Magnesia Liq) 400 Mg/5 Ml Susp, 30 ML PO HS for Constipation for 30 Days, ML Prov:Ambika CottoP 10/12/16 Current Medications Medications (Trade) Dose Ordered Sig/Gail Route Start Time Stop Time Status Last Admin (Tylenol) 650 mg Q4H PRN PO 10/19/17 19:15 10/20/17 08:25 (Milk Of Magnesia Liq) 30 ml DAILY PRN PO 10/19/17 19:15 (Mag-Al Plus Susp Liq) 30 ml Q6H PRN PO 10/19/17 19:15 (Benadryl) 50 mg HS PRN PO 10/20/17 12:30 (Atarax) 50 mg Q6H PRN PO 10/20/17 12:30 Physical Exam Vital Signs Vital Signs Date Time Temp Pulse Resp B/P (MAP) Pulse Ox O2 Delivery O2 Flow Rate FiO2 10/20/17 06:00 98.1 64 16 97/62 (74) 98 10/19/17 19:07 Room Air I/O 10/20/17 10/20/17 10/21/17 08:00 16:00 00:00 Intake Total 480 ml Balance 480 ml Lab Results Test 10/20/17 07:21 White Blood Count 7.9 TH/MM3 Red Blood Count 5.09 MIL/MM3 Hemoglobin 16.1 GM/DL Hematocrit 45.6 % Mean Corpuscular Volume 89.6 FL Mean Corpuscular Hemoglobin 31.7 PG Mean Corpuscular Hemoglobin Concent 35.4 % Red Cell Distribution Width 12.9 % Platelet Count 223 TH/MM3 Mean Platelet Volume 9.4 FL Neutrophils (%) (Auto) 55.6 % Lymphocytes (%) (Auto) 31.8 % Monocytes (%) (Auto) 10.3 % Eosinophils (%) (Auto) 1.7 % Basophils (%) (Auto) 0.6 % Neutrophils # (Auto) 4.4 TH/MM3 Lymphocytes # (Auto) 2.5 TH/MM3 Monocytes # (Auto) 0.8 TH/MM3 Eosinophils # (Auto) 0.1 TH/MM3 Basophils # (Auto) 0.0 TH/MM3 CBC Comment DIFF FINAL Differential Comment Blood Urea Nitrogen 11 MG/DL Creatinine 0.94 MG/DL Random Glucose 84 MG/DL Calcium Level 8.6 MG/DL Sodium Level 141 MEQ/L Potassium Level 3.9 MEQ/L Chloride Level 108 MEQ/L Carbon Dioxide Level 27.3 MEQ/L Anion Gap 6 MEQ/L Estimat Glomerular Filtration Rate 100 ML/MIN Triglycerides Level 112 MG/DL Cholesterol Level 119 MG/DL LDL Cholesterol 61 MG/DL HDL Cholesterol 36.1 MG/DL Cholesterol/HDL Ratio 3.29 RATIO Mental Status Examination Appearance: Disheveled, Malodorous Consciousness: Alert Orientation: x4 Motor Activity: Normal gait Speech: Other (Rambling at times) Language: Adequate Fund of Knowledge: Adequate Attention and Concentration: Inadequate Memory: Unremarkable Mood: Other (Distant) Affect: Blunt, Other (Inappropriate smiling at times) Thought Process & Associations: Intact Thought Content: Appropriate Hallucination Type: None Delusion Type: None Suicidal Ideation: No Suicidal Plan: No Suicidal Intention: No Homicidal Ideation: No Homicidal Plan: No Homicidal Intention: No Insight: Poor Judgment: Adequate Assessment & Plan Problem List: (1) Schizophrenia ICD Codes: F20.9 - Schizophrenia, unspecified Status: Acute Assessment & Plan: I have seen and examined this patient, reviewed documentation, I agree and concur with Dr. Casas assessment and plan. Assessment & Plan Estimated LOS: days Problem Qualifiers (1) Schizophrenia: Qualified Codes: F20.9 - Schizophrenia, unspecified Sridhar Thompson MD Oct 20, 2017 14:31
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
[2017-10-20 17:35] LABS: HEMOGLOBIN A1C 4.9 % (4.3-6.0)
[2017-10-20 18:09] VITALS: BP 140/77; PULSE 82; RESP 18; TEMP 98.1; O2SAT 98
[2017-10-21 05:54] VITALS: BP 111/66; PULSE 61; RESP 19; TEMP 98.1; O2SAT 95
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
[2017-10-21 17:04] VITALS: BP 118/65; PULSE 67; RESP 18; TEMP 97.8; O2SAT 98
[2017-10-22 05:37] VITALS: BP 104/66; PULSE 55; RESP 16; TEMP 97.5; O2SAT 99
[2017-10-22 17:01] VITALS: BP 139/81; PULSE 89; RESP 16; TEMP 97.5; O2SAT 99
--- NOTE | 2017-10-22 17:12 | HHI.PYPN ---
Subjective Remarks Patient seen for follow up; chart reviewed. Discussion with nursing staff reported that patient has been noted to be social with other patients, pleasant with staff. Patient was found ambulating in the hallway, states having been visited by his aunts which had explained the events of the passing of his mother. He states that he had also been in contact with his grandfather and considering living with him. He states his mood as being "good". Review of Systems Except as stated in HPI: all other systems reviewed are Neg Mental Status Examination Appearance: Appropriate, Malodorous Consciousness: Alert Orientation: x4 Motor Activity: Normal gait Speech: Other (Rambling at times) Language: Adequate Fund of Knowledge: Inadequate Attention and Concentration: Inadequate Memory: Unremarkable Mood: Other (Distant) Affect: Blunt Thought Process & Associations: Intact Thought Content: Appropriate Hallucination Type: None Delusion Type: None Suicidal Ideation: No Suicidal Plan: No Suicidal Intention: No Homicidal Ideation: No Homicidal Plan: No Homicidal Intention: No Insight: Fair Judgment: Adequate Results Vitals/IOs Vital Signs Date Time Temp Pulse Resp B/P (MAP) Pulse Ox O2 Delivery O2 Flow Rate FiO2 10/22/17 17:01 97.5 89 16 139/81 (100) 99 10/19/17 19:07 Room Air Assessment & Plan Problem List: (1) Schizophrenia ICD Codes: F20.9 - Schizophrenia, unspecified Status: Acute Assessment & Plan Patient with no noted acute psychiatric symptoms, continues to process the loss of his mother. Continue to monitor mood and behavior, discharge planning in progress. Justification for Cont. Inpt. At risk for further decompensation if at lower level of care. Problem Qualifiers (1) Schizophrenia: Qualified Codes: F20.9 - Schizophrenia, unspecified Job Casas MD Oct 22, 2017 17:12
[2017-10-23 05:31] VITALS: BP 106/60; PULSE 54; RESP 18; TEMP 98.1; O2SAT 98
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
== END 2017-10-23 15:45 | disposition home or self-care (01) | DRG 884 ==
LOC: NEPD 23:26 → NEDA 10-19 19:39 → H260 10-19 21:31
PROVIDERS: ADMIT Student in an Organized Health Care Education/Training Program; ATTEND Student in an Organized Health Care Education/Training Program
DX: F84.0 Autistic disorder (principal); R17 Unspecified jaundice; F20.9 Schizophrenia, unspecified; Z91.5 Personal history of self-harm; Z81.8 Family history of other mental and behavioral disorders
CPT/HCPCS: 80048; 80053; 80061; 80307; 83036; 84443; 85025; 99285